=== PATIENT | female | born 1945 | race Two or more races ===

== ENCOUNTER 2017-05-26 14:52 | Emergency (ER) | payer OTHER ==
[~2017-05-26] VITALS: Ht 162.6 cm; Wt 115.7 kg
[~2017-05-26 14:52] MED LIST: CARDURA8 MG PO; FOLIC ACID1 MG PO; HUMULIN 70/30 PE3 ML SC; HUMULIN 70/30 PE3 ML SQ; LASIX40 MG PO; NEURONTIN600 MG PO; PREDNISONE20 MG PO; SINGULAIR10 MG PO; SYNTHROID50 MCG PO; TRENTAL; TYLENOL/CODEINE; VITAMIN D35000 UNI1 PO; WOMEN'S DAILY1 EACH PO; Z-TUSS AC LIQU473 ML; ZESTRIL40 M1 PO; ZYLOPRIM300 MG PO
[2017-05-26] MEDS ORDERED: LIPITOR20 MG (15:22)
[2017-05-26] MEDS ORDERED: COZAAR100 MG (15:22)
== END 2017-05-27 01:03 | disposition home or self-care (01) ==
LOC: ER 14:52
DX: J45.909 Unspecified asthma, uncomplicated (principal); J11.1 Influenza due to unidentified influenza virus with other respiratory manifestations; K52.9 Noninfective gastroenteritis and colitis, unspecified

== ENCOUNTER 2018-07-02 17:33 | Emergency (ER) | payer OTHER ==
[~2018-07-02] VITALS: Ht 157.5 cm; Wt 127.0 kg
[~2018-07-02 17:33] MED LIST changes: +COZAAR100 MG; +LIPITOR20 MG
== END 2018-07-02 21:11 | disposition home or self-care (01) ==
LOC: ER 17:33
DX: E11.649 Type 2 diabetes mellitus with hypoglycemia without coma (principal); R07.89 Other chest pain; M54.2 Cervicalgia; M25.511 Pain in right shoulder; I16.0 Hypertensive urgency; I10 Essential (primary) hypertension

== ENCOUNTER 2022-09-09 16:05 | Emergency (ER) | payer OTHER ==
[~2022-09-09] VITALS: Ht 162.6 cm; Wt 136.1 kg
[2022-09-09] MEDS ORDERED: TUSNEL DIABETI118 ML PO (18:35)
[2022-09-09] MEDS ORDERED: ZITHROMAX500 MG PO (18:35)
[2022-09-09] MEDS ORDERED: XOPENEX0.63 MG/3 IH (18:35)
== END 2022-09-09 18:49 | disposition home or self-care (01) ==
LOC: ER 16:05
DX: J45.901 Unspecified asthma with (acute) exacerbation (principal); E11.9 Type 2 diabetes mellitus without complications; Z79.4 Long term (current) use of insulin; Z20.822 Contact with and (suspected) exposure to COVID-19; I10 Essential (primary) hypertension

== ENCOUNTER 2024-05-31 19:09 | Inpatient (IN) | payer OTHER ==
[~2024-05-31] VITALS: Ht 172.7 cm; Wt 181.4 kg
[~2024-05-31 19:09] MED LIST changes: +TUSNEL DIABETI118 ML PO; +XOPENEX0.63 MG/3 IH; +ZITHROMAX500 MG PO
[2024-05-31] MEDS ORDERED: GUAIFENESIN/DEXTROMETHORPHAN 10ML BLIST.PACK PO ONE ×2 (21:15→21:19)
[2024-05-31] MEDS ORDERED: MAGNESIUM SULFATE IN WATER 50 ML IV ONE (21:15)
[2024-05-31] MEDS ORDERED: METHYLPREDNISOLONE SOD SUCC 125 MG VIAL IV ONE (21:15)
[2024-05-31] MEDS ORDERED: IPRATROPIUM BROMIDE 0.5 MG/2.5 ML AMPUL.NEB IH SCH (21:15)
[2024-05-31] MEDS ORDERED: 0.9 % SODIUM CHLORIDE 1,000 ML IV SCH (21:15)
[2024-05-31] MEDS ORDERED: LEVALBUTEROL HCL 1.25 MG/3 ML SOLUTION IH SCH (21:15)
[2024-05-31] MEDS ORDERED: MAGNESIUM SULFATE 50% 1,000 MG/2 ML VIAL ONE (21:19)
[2024-05-31] MEDS ORDERED: METHYLPREDNISOLONE SOD SUCC 125 MG VIAL ONE (21:19)
[2024-05-31] MEDS ORDERED: LEVALBUTEROL HCL 1.25 MG/3 ML SOLUTION IH ONE (21:23)
[2024-05-31] MEDS ORDERED: IPRATROPIUM BROMIDE 0.5 MG/2.5 ML AMPUL.NEB IH ONE (21:23)
[2024-05-31 21:46] LABS: HEMATOCRIT 28.5 % (36.0-45.00); HEMOGLOBIN 9.2 g/dL (12.0-15.00); MEAN CELL VOLUME 100.6 fL (80.00-100.00); MEAN CORPUSCULAR HEMOGLOBIN 32.6 pg (27.00-32.0); MEAN CORPUSCULAR HGB CONC 32.4 g/dl (32.0-36.0); RED BLOOD COUNT 2.83 M/uL (4.00-6.00); RED CELL DISTRIBUTION WIDTH 15.8 % (11.5-14.5)
[2024-05-31 21:48] LABS: PLATELET COUNT 92 K/uL (150-450)
[2024-05-31 21:49] LABS: ABG PH 7.406 (7.35-7.45); ABG pCO2 49.3 mmHg (35-45); BASE EXCESS 4.5 mmol/l; BICARBONATE 30.3 mmol/l (23-25); SaO2 96.2 %; Tco2 31.8 mmol/l; allen test SATISFACTORY; puncture site RADIAL LEFT
[2024-05-31 21:50] LABS: o2 21 %
[2024-05-31 22:15] LABS: ALBUMIN 2.9 gm/dL (3.4-5.0); BILIRUBIN TOTAL 0.35 mg/dL (0.3-1.2); CALCIUM 8.9 mg/dL (8.5-10.1); CREATININE SERUM 2.42 mg/dL (0.55-1.02); GFR 19.29; GLOBULINA 4.6 G/DL (2.4-3.5); POTASSIUM 4.4 mEq/L (3.5-5.1); TOTAL PROTEIN 7.5 gm/dL (6.4-8.2)
[2024-06-01] MEDS ORDERED: FAMOTIDINE/PF 20 MG in 0.9 % SODIUM CHLORIDE 8 ML IV PUSH SCH (00:35)
[2024-06-01] MEDS ORDERED: PIPERACILLIN/TAZOBACTAM SODIUM 2.25 GM in DEXTROSE 5 % IN WATER 50 ML IV SCH (00:36)
[2024-06-01] MEDS ORDERED: BUDESONIDE 0.5 MG/2 ML AMPUL.NEB IH SCH (00:41)
[2024-06-01] MEDS ORDERED: ACETAMINOPHEN 500 MG GEL..CAP PO PRN (00:45)
[2024-06-01] MEDS ORDERED: DEXTROSE 50 % IN WATER 0.5 G/ML DISP.SYRIN IV PRN (00:45)
[2024-06-01] MEDS ORDERED: INSULIN LISPRO 1,000 UNIT/10 ML UNITS SUBCUTANEO PRN (00:45)
[2024-06-01] MEDS ORDERED: LEVALBUTEROL HCL 1.25 MG/3 ML SOLUTION IH SCH ×2 (01:00→20:00)
[2024-06-01] MEDS ORDERED: GUAIFEN/DEXTROMETHORPHAN/PE 10 ML BLIST.PACK PO SCH (01:00)
[2024-06-01] MEDS ORDERED: IPRATROPIUM BROMIDE 0.5 MG/2.5 ML AMPUL.NEB IH SCH ×2 (01:00→20:00)
[2024-06-01] MEDS ORDERED: FAMOTIDINE/PF 20 MG/2 ML VIAL ONE ×2 (01:11→08:54)
[2024-06-01] MEDS ORDERED: GUAIFEN/DEXTROMETHORPHAN/PE 10 ML BLIST.PACK PO ONE ×4 (01:11→17:23)
[2024-06-01] MEDS ORDERED: LEVALBUTEROL HCL 1.25 MG/3 ML SOLUTION IH ONE ×5 (02:12→18:08)
[2024-06-01] MEDS ORDERED: IPRATROPIUM BROMIDE 0.5 MG/2.5 ML AMPUL.NEB IH ONE ×5 (02:12→18:08)
[2024-06-01] MEDS ORDERED: BUDESONIDE 0.5 MG/2 ML AMPUL.NEB IH ONE ×2 (02:12→08:57)
[2024-06-01 02:19] LABS: URINE APPEARANCE Clear; URINE BILIRRUBIN Negative (NEGATIVE); URINE BLOOD Negative; URINE COLOR Yellow; URINE GLUCOSE Negative (NEGATIVE); URINE KETONE Negative (NEGATIVE); URINE LEUKOCYTE Small; URINE NITRATE Negative; URINE PROTEIN Trace (NEGATIVE); URINE UROBILINOGEN 0.2 E.U./dl
[2024-06-01 02:22] LABS: URINE BACTERIA 3347.4 uL (0.0-1933); URINE EPITHELIAL CELLS 10.1 uL (0.0-38.8); URINE WBC 94.8 uL (0.0-23.2)
[2024-06-01 02:23] LABS: URINE CAST 0.29 uL (0.0-1.40); URINE RBC 1.1 uL (0.0-20.8)
[2024-06-01 02:53] LABS: INR 1.02; PARTIAL THROMBOPLASTIN TIME 22.3 SECONDS (22.0-34.0); PROTHROMBIN TIME 11.1 SECONDS (9.0-11.5)
[2024-06-01] MEDS ORDERED: ENOXAPARIN SODIUM 40 MG/0.4 ML SYRINGE SUBCUTANEO SCH (16:45)
[2024-06-01] MEDS ORDERED: FUROsemide 20 MG/2 ML VIAL IV SCH (16:47)
[2024-06-01] MEDS ORDERED: PENTOXIFYLLINE 400 MG TABLET.SA PO SCH (17:00)
[2024-06-01] MEDS ORDERED: MONTELUKAST SODIUM 10 MG TABLET PO SCH (17:00)
[2024-06-01] MEDS ORDERED: DOXAZOSIN MESYLATE 8 MG TABLET PO SCH (17:00)
[2024-06-01] MEDS ORDERED: FUROsemide 20 MG/2 ML VIAL ONE (17:23)
[2024-06-01] MEDS ORDERED: ENOXAPARIN SODIUM 40 MG/0.4 ML SYRINGE SUBCUTANEO ONE (17:23)
[2024-06-01 18:00] VITALS: BP 143/57; O2SAT 100
[2024-06-01 21:31] VITALS: O2SAT 99
[2024-06-01 22:18] VITALS: BP 143/55; O2SAT 100
[2024-06-02] VITALS (8 sets, daily range): BP systolic 144–167; BP diastolic 60–61; O2SAT 96–100
[2024-06-02 08:41] LABS: CALCIUM 8.7 mg/dL (8.5-10.1); CREATININE SERUM 2.88 mg/dL (0.55-1.02); GFR 15.78; POTASSIUM 4.76 mEq/L (3.5-5.1); TSH 1.07 uIU/mL (0.358-3.74)
[2024-06-02] MEDS ORDERED: CANDESARTAN CILEXETIL 32 MG TABLET PO SCH (09:00)
[2024-06-02] MEDS ORDERED: ATORVASTATIN CALCIUM 10 MG TABLET PO SCH (09:00)
[2024-06-02] MEDS ORDERED: BENZONATATE 100 MG CAPSULE PO SCH (20:58)
[2024-06-02] MEDS ORDERED: METHYLPREDNISOLONE SOD SUCC 40 MG VIAL IV SCH (20:59)
[2024-06-03] VITALS (9 sets, daily range): BP systolic 16–180; BP diastolic 63–77; O2SAT 94–99
[2024-06-03] MEDS ORDERED: IPRATROPIUM BROMIDE 0.5 MG/2.5 ML AMPUL.NEB IH SCH
[2024-06-03] MEDS ORDERED: LEVALBUTEROL HCL 1.25 MG/3 ML SOLUTION IH SCH
[2024-06-03] MEDS ORDERED: EMOLLIENTS 6 OZ BOTTLE TOP SCH (17:00)
[2024-06-03] MEDS ORDERED: METHYLPREDNISOLONE SOD SUCC 40 MG VIAL IV SCH (21:18)
[2024-06-04] VITALS (8 sets, daily range): BP systolic 157–170; BP diastolic 69–70; O2SAT 97–99
[2024-06-04 04:15] LABS: FECAL LEUKOCYTES POSITIVE (NEGATIVE)
[2024-06-04 06:26] LABS: HEMATOCRIT 27.5 % (36.0-45.00); MEAN CELL VOLUME 100.7 fL (80.00-100.00); MEAN CORPUSCULAR HGB CONC 32.7 g/dl (32.0-36.0); RED BLOOD COUNT 2.73 M/uL (4.00-6.00); RED CELL DISTRIBUTION WIDTH 16.1 % (11.5-14.5)
[2024-06-04 06:34] LABS: PLATELET COUNT 88 K/uL (150-450)
[2024-06-04 06:43] LABS: CALCIUM 9.2 mg/dL (8.5-10.1); CREATININE SERUM 2.32 mg/dL (0.55-1.02); GFR 20.25; MAGNESIUM 1.8 mg/dL (1.8-2.4); PHOSPHOROUS 4.1 mg/dL (2.5-4.9); POTASSIUM 4.87 mEq/L (3.5-5.1)
[2024-06-04 15:31] LABS: ALBUMIN 3.3 gm/dL (3.4-5.0); CALCIUM 9.2 mg/dL (8.5-10.1); CREATININE SERUM 2.5 mg/dL (0.55-1.02); GFR 18.58; PHOSPHOROUS 4.2 mg/dL (2.5-4.9); POTASSIUM 4.71 mEq/L (3.5-5.1); URIC ACID 7.9 mg/dL (2.5-7.5)
[2024-06-04] MEDS ORDERED: CEFEPIME HCL 2,000 MG in 0.9 % SODIUM CHLORIDE 100 ML IV SCH (21:00)
[2024-06-05] VITALS (8 sets, daily range): BP systolic 155–181; BP diastolic 67–72; O2SAT 95–100
[2024-06-05 06:51] LABS: MEAN CELL VOLUME 99.2 fL (80.00-100.00); MEAN CORPUSCULAR HGB CONC 33.9 g/dl (32.0-36.0); RED BLOOD COUNT 2.62 M/uL (4.00-6.00)
[2024-06-05 06:52] LABS: MEAN CORPUSCULAR HEMOGLOBIN 33.5 pg (27.00-32.0); PLATELET COUNT 83 K/uL (150-450)
[2024-06-05 06:53] LABS: HEMOGLOBIN 8.8 g/dL (12.0-15.00)
[2024-06-05 07:30] LABS: BILIRUBIN TOTAL 0.41 mg/dL (0.3-1.2); CALCIUM 9.2 mg/dL (8.5-10.1); CREATININE SERUM 2.4 mg/dL (0.55-1.02); GFR 19.47; GLOBULINA 4.2 G/DL (2.4-3.5); POTASSIUM 5.14 mEq/L (3.5-5.1); TOTAL PROTEIN 7.2 gm/dL (6.4-8.2)
[2024-06-05] MEDS ORDERED: FAMOtidine 20 MG TABLET PO SCH (09:00)
[2024-06-05] MEDS ORDERED: METHYLPREDNISOLONE SOD SUCC 40 MG VIAL IV SCH (21:00)
[2024-06-06 03:08] VITALS: BP 146/75; O2SAT 97
[2024-06-06 06:25] VITALS: O2SAT 99
[2024-06-06 06:38] LABS: HEMATOCRIT 28.6 % (36.0-45.00); HEMOGLOBIN 9.2 g/dL (12.0-15.00); MEAN CELL VOLUME 100.7 fL (80.00-100.00); MEAN CORPUSCULAR HEMOGLOBIN 32.3 pg (27.00-32.0); MEAN CORPUSCULAR HGB CONC 32.1 g/dl (32.0-36.0); RED BLOOD COUNT 2.84 M/uL (4.00-6.00); RED CELL DISTRIBUTION WIDTH 15.9 % (11.5-14.5)
[2024-06-06 06:45] LABS: D DIMER 1.25 MG/L
[2024-06-06 06:47] LABS: ERYTHROCYTE SEDIMENTATION RATE 86 mm/hr
[2024-06-06 07:04] LABS: PLATELET COUNT 75 K/uL (150-450)
[2024-06-06 08:22] LABS: PLATELET ESTIMATE NORMAL (NORMAL)
[2024-06-06] MEDS ORDERED: EPOETIN ALFA-EPBX 10,000 UNIT/ML VIAL (Retacrit) SUBCUTANEO SCH (09:00)
[2024-06-06 09:54] VITALS: BP 187/70; O2SAT 97
[2024-06-06 10:00] VITALS: O2SAT 97
[2024-06-06 12:09] LABS: PROCALCITONIN 0.093 ng/ml (0.020-0.080)
[2024-06-06 12:11] LABS: FOLIC ACID > 20.00 ng/ml (4.78-20)
[2024-06-06 13:02] VITALS: O2SAT 98
[2024-06-07 16:08] LABS: kappa lambda r 0.08 (0.26-1.65); kappa light 16.9 mg/L (3.3-19.4); lambda light 199.5 mg/L (5.7-26.3)
== END 2024-06-06 16:51 | disposition home or self-care (01) | DRG 191 ==
LOC: ER 19:11 → MEDI 06-01 18:08
PROVIDERS: General Practice; Internal Medicine; Internal Medicine Hematology & Oncology; Internal Medicine Nephrology; ADMIT Internal Medicine; ATTEND Internal Medicine
PROC: BB24ZZZ Computerized Tomography (CT Scan) of Bilateral Lungs (ICD-10-PCS; principal; 2024-05-31)
PROC: B54DZZZ Ultrasonography of Bilateral Lower Extremity Veins (ICD-10-PCS; 2024-06-01)
PROC: 3E0F7GC Introduction of Other Therapeutic Substance into Respiratory Tract, Via Natural or Artificial Opening (ICD-10-PCS; 2024-06-01)
PROC: 4A12X4Z Monitoring of Cardiac Electrical Activity, External Approach (ICD-10-PCS; 2024-06-01)
PROC: B44HZZZ Ultrasonography of Bilateral Lower Extremity Arteries (ICD-10-PCS; 2024-06-01)
PROC: 0JBN3ZZ Excision of Right Lower Leg Subcutaneous Tissue and Fascia, Percutaneous Approach (ICD-10-PCS; 2024-06-02)
PROC: B246ZZZ Ultrasonography of Right and Left Heart (ICD-10-PCS; 2024-06-03)
PROC: BT4JZZZ Ultrasonography of Kidneys and Bladder (ICD-10-PCS; 2024-06-04)
DX: J44.1 Chronic obstructive pulmonary disease with (acute) exacerbation (principal); L97.818 Non-pressure chronic ulcer of other part of right lower leg with other specified severity; N17.8 Other acute kidney failure; L98.418 Non-pressure chronic ulcer of buttock with other specified severity; I12.9 Hypertensive chronic kidney disease with stage 1 through stage 4 chronic kidney disease, or unspecified chronic kidney disease; N18.9 Chronic kidney disease, unspecified; E03.9 Hypothyroidism, unspecified; L08.89 Other specified local infections of the skin and subcutaneous tissue; E66.01 Morbid (severe) obesity due to excess calories

== ENCOUNTER 2024-06-07 23:24 | Emergency (ER) | payer OTHER ==
[~2024-06-07] VITALS: Ht 165.1 cm; Wt 122.5 kg
[2024-06-08] MEDS ORDERED: METHYLPREDNISOLONE SOD SUCC 125 MG VIAL IV STA (04:13)
[2024-06-08] MEDS ORDERED: ALBUTEROL SULFATE 3 ML/2.5 MG AMPUL.NEB IH SCH (04:15)
[2024-06-08] MEDS ORDERED: METHYLPREDNISOLONE SOD SUCC 125 MG VIAL ONE (04:19)
[2024-06-08] MEDS ORDERED: IPRATROPIUM BROMIDE 0.5 MG/2.5 ML AMPUL.NEB IH SCH (04:30)
[2024-06-08] MEDS ORDERED: IPRATROPIUM BROMIDE 0.5 MG/2.5 ML AMPUL.NEB IH ONE (04:40)
[2024-06-08] MEDS ORDERED: ALBUTEROL SULFATE 3 ML/2.5 MG AMPUL.NEB IH ONE (04:40)
[2024-06-08 04:56] LABS: HEMATOCRIT 28.6 % (36.0-45.00); MEAN CELL VOLUME 98.6 fL (80.00-100.00); MEAN CORPUSCULAR HGB CONC 33.5 g/dl (32.0-36.0)
[2024-06-08 05:00] LABS: PLATELET COUNT 79 K/uL (150-450)
[2024-06-08 05:01] LABS: HEMOGLOBIN 9.6 g/dL (12.0-15.00); MEAN CORPUSCULAR HEMOGLOBIN 33.1 pg (27.00-32.0)
[2024-06-08 05:42] LABS: CALCIUM 8.8 mg/dL (8.5-10.1); CREATININE SERUM 2.47 mg/dL (0.55-1.02); GFR 18.84; POTASSIUM 3.7 mEq/L (3.5-5.1)
== END 2024-06-08 08:05 | disposition home or self-care (01) ==
LOC: ER 23:24
DX: J45.901 Unspecified asthma with (acute) exacerbation (principal); I10 Essential (primary) hypertension; E11.9 Type 2 diabetes mellitus without complications; Z79.84 Long term (current) use of oral hypoglycemic drugs; R07.89 Other chest pain

== ENCOUNTER 2024-06-08 22:35 | Inpatient (IN) | payer OTHER ==
[~2024-06-08] VITALS: Ht 162.6 cm; Wt 126.6 kg
[2024-06-09] VITALS (10 sets, daily range): BP systolic 102–150; BP diastolic 48–68; O2SAT 94–100
[2024-06-09] MEDS ORDERED: IPRATROPIUM/ALBUTEROL SULFATE 3 ML AMPUL.NEB IH STA (00:45)
[2024-06-09] MEDS ORDERED: IPRATROPIUM/ALBUTEROL SULFATE 3 ML AMPUL.NEB IH ONE (01:11)
[2024-06-09 01:42] LABS: ABG PH 7.494 (7.35-7.45); ABG PO2 82.6 mmHg (80-100); ABG pCO2 36.1 mmHg (35-45); BICARBONATE 27.2 mmol/l (23-25); SaO2 97.2 %; Tco2 28.3 mmol/l; allen test SATISFACTORY; o2 21 %; puncture site RADIAL RIGHT
[2024-06-09 02:12] LABS: ALBUMIN 2.8 gm/dL (3.4-5.0); BILIRUBIN TOTAL 0.52 mg/dL (0.3-1.2); CALCIUM 8.7 mg/dL (8.5-10.1); CREATININE SERUM 2.59 mg/dL (0.55-1.02); GFR 17.83; GLOBULINA 4.1 G/DL (2.4-3.5); POTASSIUM 3.95 mEq/L (3.5-5.1); TOTAL PROTEIN 6.9 gm/dL (6.4-8.2)
[2024-06-09 02:42] LABS: HEMOGLOBIN 9.7 g/dL (12.0-15.00); MEAN CELL VOLUME 97.6 fL (80.00-100.00); MEAN CORPUSCULAR HEMOGLOBIN 32.5 pg (27.00-32.0); MEAN CORPUSCULAR HGB CONC 33.3 g/dl (32.0-36.0); PLATELET COUNT 75 K/uL (150-450); RED BLOOD COUNT 2.97 M/uL (4.00-6.00); RED CELL DISTRIBUTION WIDTH 16.2 % (11.5-14.5)
[2024-06-09 02:45] LABS: ERYTHROCYTE SEDIMENTATION RATE 4 mm/hr
[2024-06-09 02:50] LABS: D DIMER 1.89 MG/L; PARTIAL THROMBOPLASTIN TIME 20.3 SECONDS (22.0-34.0)
[2024-06-09 02:51] LABS: INR 1.18; PROTHROMBIN TIME 12.7 SECONDS (9.0-11.5)
[2024-06-09] MEDS ORDERED: CLOPIDOGREL BISULFATE 75 MG TABLET PO STA (03:42)
[2024-06-09] MEDS ORDERED: ASPIRIN 81 MG TAB.CHEW PO STA (03:43)
[2024-06-09] MEDS ORDERED: ATORVASTATIN CALCIUM 40 MG TABLET PO STA (03:44)
[2024-06-09] MEDS ORDERED: NITROGLYCERIN IN 5 % DEXTROSE 50 MG/250 ML KIT IV STA (03:45)
[2024-06-09] MEDS ORDERED: HEPARIN SODIUM,PORCINE 5,000 UNITS/ML VIAL SUBCUTANEO STA (03:46)
[2024-06-09] MEDS ORDERED: HEPARIN SODIUM,PORCINE 5,000 UNITS/ML VIAL ONE (04:01)
[2024-06-09] MEDS ORDERED: NITROGLYCERIN IN 5 % DEXTROSE 50 MG/250 ML BOTTLE IV ONE (04:01)
[2024-06-09] MEDS ORDERED: CLOPIDOGREL BISULFATE 75 MG TABLET PO ONE (04:01)
[2024-06-09] MEDS ORDERED: ONDANSETRON HCL 2 MG/ML VIAL IV PRN (07:45)
[2024-06-09 09:50] LABS: URINE APPEARANCE Cloudy; URINE BILIRRUBIN Negative (NEGATIVE); URINE BLOOD Small; URINE COLOR Dark Yellow; URINE GLUCOSE Negative (NEGATIVE); URINE KETONE Trace (NEGATIVE); URINE LEUKOCYTE Small; URINE NITRATE Negative; URINE PROTEIN 30 (NEGATIVE); URINE UROBILINOGEN 0.2 E.U./dl
[2024-06-09] MEDS ORDERED: FAMOTIDINE/PF 20 MG/2 ML VIAL ONE (10:36)
[2024-06-09] MEDS ORDERED: FAMOTIDINE/PF 20 MG/2 ML VIAL IV ONE (10:45)
[2024-06-09] MEDS ORDERED: MORPHINE SULFATE 2 MG/ML SYRINGE IV PRN (10:45)
[2024-06-09] MEDS ORDERED: 0.9 % SODIUM CHLORIDE 1,000 ML IV ONE (10:45)
[2024-06-09] MEDS ORDERED: DEXTROSE 50 % IN WATER 0.5 G/ML DISP.SYRIN IV PRN ×2 (13:45→18:00)
[2024-06-09] MEDS ORDERED: INSULIN LISPRO 1,000 UNIT/10 ML UNITS SUBCUTANEO PRN ×2 (13:45→18:00)
[2024-06-09] MEDS ORDERED: BUMETANIDE 0.25 MG/ML VIAL 4ML IV PUSH SCH (17:48)
[2024-06-09] MEDS ORDERED: EPOETIN ALFA-EPBX 10,000 UNIT/ML VIAL (Retacrit) SUBCUTANEO SCH (17:49)
[2024-06-09] MEDS ORDERED: IPRATROPIUM BROMIDE 0.5 MG/2.5 ML AMPUL.NEB IH SCH (18:00)
[2024-06-09] MEDS ORDERED: SODIUM CHLORIDE 0.45 % 1,000 ML IV SCH (18:00)
[2024-06-09] MEDS ORDERED: ONDANSETRON HCL 4 MG in DEXTROSE 5 % IN WATER 50 ML IV PRN (18:00)
[2024-06-09] MEDS ORDERED: MORPHINE SULFATE 2 MG/ML CARTRIDGE IV PRN (18:00)
[2024-06-09] MEDS ORDERED: NITROGLYCERIN IN 5 % DEXTROSE 250 ML IV SCH (18:00)
[2024-06-09] MEDS ORDERED: ACETAMINOPHEN 500 MG GEL..CAP PO PRN (18:00)
[2024-06-09] MEDS ORDERED: LEVALBUTEROL HCL 1.25 MG/3 ML SOLUTION IH SCH (18:03)
[2024-06-09 19:50] LABS: CKMB 1.8 NG/ML (0.5-3.6)
[2024-06-09] MEDS ORDERED: ENOXAPARIN SODIUM 100 MG/ML SYRINGE SUBCUTANEO SCH (21:00)
[2024-06-10] VITALS (8 sets, daily range): BP systolic 125–141; BP diastolic 53–57; O2SAT 96–98
[2024-06-10] MEDS ORDERED: LEVOTHYROXINE SODIUM 50 MCG TABLET PO SCH (06:00)
[2024-06-10 07:48] LABS: URINE APPEARANCE Turbid; URINE BILIRRUBIN Moderate (NEGATIVE); URINE BLOOD Large; URINE COLOR Dark Yellow; URINE GLUCOSE Negative (NEGATIVE); URINE KETONE Trace (NEGATIVE); URINE LEUKOCYTE Moderate; URINE NITRATE Negative; URINE PROTEIN 30 (NEGATIVE)
[2024-06-10 07:49] LABS: URINE BACTERIA 4991.4 uL (0.0-1933); URINE EPITHELIAL CELLS 168.7 uL (0.0-38.8); URINE RBC 334.5 uL (0.0-20.8); URINE WBC 642.9 uL (0.0-23.2)
[2024-06-10 08:41] LABS: HEMATOCRIT 28.1 % (36.0-45.00); HEMOGLOBIN 9.4 g/dL (12.0-15.00); MEAN CORPUSCULAR HEMOGLOBIN 33.3 pg (27.00-32.0); MEAN CORPUSCULAR HGB CONC 33.3 g/dl (32.0-36.0); RED BLOOD COUNT 2.81 M/uL (4.00-6.00); RED CELL DISTRIBUTION WIDTH 16.4 % (11.5-14.5)
[2024-06-10 08:51] LABS: URINE CAST > 21.83 uL (0.0-1.40)
[2024-06-10 08:53] LABS: URINE CRYSTALS FEW /HPF; URINE YEAST MANY /hpf
[2024-06-10] MEDS ORDERED: ASPIRIN 81 MG TAB.CHEW PO SCH (09:00)
[2024-06-10] MEDS ORDERED: ATORVASTATIN CALCIUM 40 MG TABLET PO SCH (09:00)
[2024-06-10] MEDS ORDERED: PANTOPRAZOLE SODIUM 40 MG in 0.9 % SODIUM CHLORIDE 8 ML IV PUSH SCH (09:00)
[2024-06-10] MEDS ORDERED: PREDNISONE 10 MG TABLET PO SCH (09:00)
[2024-06-10] MEDS ORDERED: PENTOXIFYLLINE 400 MG TABLET.SA PO SCH (09:00)
[2024-06-10] MEDS ORDERED: DOXAZOSIN MESYLATE 8 MG TABLET PO SCH (09:00)
[2024-06-10] MEDS ORDERED: CEFTRIAXONE SODIUM 1,000 MG VIAL IV SCH (09:00)
[2024-06-10] MEDS ORDERED: CANDESARTAN CILEXETIL 32 MG TABLET PO SCH (09:00)
[2024-06-10 09:08] LABS: PLATELET COUNT 69 K/uL (150-450)
[2024-06-10 09:09] LABS: ALBUMIN 2.6 gm/dL (3.4-5.0); BILIRUBIN TOTAL 0.46 mg/dL (0.3-1.2); BILIRUBIN,CONJUGATED 0.19 mg/dL (0.0-0.2); BILIRUBIN,UNCONJUGATED 0.27 mg/dL (0.0-0.6); CALCIUM 8.5 mg/dL (8.5-10.1); CHOL HDL RATIO 2.3 (0-5.0); GLOBULINA 3.7 G/DL (2.4-3.5); POTASSIUM 4.15 mEq/L (3.5-5.1); TOTAL PROTEIN 6.3 gm/dL (6.4-8.2); TSH 1.08 uIU/mL (0.358-3.74)
[2024-06-10 09:10] LABS: ERYTHROCYTE SEDIMENTATION RATE 34 mm/hr
[2024-06-10 09:17] LABS: INR 1.15; PROTHROMBIN TIME 12.4 SECONDS (9.0-11.5)
[2024-06-10 09:52] LABS: C-REACTIVE PROTEIN 2.16 MG/DL (0.00-0.29); CREATININE SERUM 5.03 mg/dL (0.55-1.02); GFR 8.29
[2024-06-10] MEDS ORDERED: BUMETANIDE 2.5 MG/10 ML VIAL IV SCH (13:00)
[2024-06-10] MEDS ORDERED: MONTELUKAST SODIUM 10 MG TABLET PO SCH (17:00)
[2024-06-10] MEDS ORDERED: hydrALAZINE HCL 50 MG TABLET PO SCH (22:09)
[2024-06-11] VITALS (10 sets, daily range): BP systolic 133–144; BP diastolic 45–58; O2SAT 96–98
[2024-06-11 06:53] LABS: URINE APPEARANCE Clear; URINE BILIRRUBIN Negative (NEGATIVE); URINE BLOOD Small; URINE COLOR Yellow; URINE GLUCOSE Negative (NEGATIVE); URINE KETONE Trace (NEGATIVE); URINE LEUKOCYTE Small; URINE NITRATE Negative; URINE PROTEIN 30 (NEGATIVE); URINE UROBILINOGEN 0.2 E.U./dl
[2024-06-11 06:55] LABS: URINE BACTERIA 102.8 uL (0.0-1933); URINE CAST 20.47 uL (0.0-1.40); URINE EPITHELIAL CELLS 20.7 uL (0.0-38.8); URINE RBC 83.9 uL (0.0-20.8); URINE WBC 156.1 uL (0.0-23.2)
[2024-06-11 07:05] LABS: URINE YEAST FEW /hpf
[2024-06-11 07:52] LABS: ALBUMIN 2.5 gm/dL (3.4-5.0); BILIRUBIN TOTAL 0.42 mg/dL (0.3-1.2); CALCIUM 8.4 mg/dL (8.5-10.1); GFR 7.56; GLOBULINA 3.5 G/DL (2.4-3.5); POTASSIUM 3.81 mEq/L (3.5-5.1)
[2024-06-11] MEDS ORDERED: INSULIN NPH HUM/REG INSULIN HM 1,000 UNIT/10 ML UNITS SUBCUTANEO SCH (08:00)
[2024-06-11 08:13] LABS: CREATININE SERUM 5.45 mg/dL (0.55-1.02)
[2024-06-11] MEDS ORDERED: HEPARIN SODIUM,PORCINE 5,000 UNITS/ML VIAL ONE ×2 (12:35→18:39)
[2024-06-11] MEDS ORDERED: LIDOCAINE HCL 1% 10ML VIAL ONE (12:40)
[2024-06-11] MEDS ORDERED: HEPARIN SODIUM,PORCINE 5,000 UNITS/ML VIAL IJ NR (13:15)
[2024-06-11] MEDS ORDERED: LIDOCAINE HCL 1% 10ML VIAL IJ ONE (13:15)
[2024-06-11 13:57] LABS: ABG PH 7.451 (7.35-7.45); ABG PO2 84.9 mmHg (80-100); ABG pCO2 37.3 mmHg (35-45); BASE EXCESS 1.7 mmol/l; BICARBONATE 25.4 mmol/l (23-25); SaO2 96.9 %; Tco2 26.6 mmol/l
[2024-06-11 13:59] LABS: allen test SATISFACTORY; o2 28 %; puncture site RADIAL LEFT
[2024-06-11] MEDS ORDERED: METHYLPREDNISOLONE SOD SUCC 40 MG VIAL IM SCH (14:07)
[2024-06-11] MEDS ORDERED: IPRATROPIUM BROMIDE 0.5 MG/2.5 ML AMPUL.NEB IH SCH (16:00)
[2024-06-11] MEDS ORDERED: FLUCONAZOLE IN NACL,ISO-OSM 400 MG/200 ML PIGGYBAG IV NR (17:00)
[2024-06-11] MEDS ORDERED: MEROPENEM 500 MG/VIAL VIAL IV SCH (20:57)
[2024-06-11] MEDS ORDERED: METHYLPREDNISOLONE SOD SUCC 40 MG VIAL IV SCH (21:00)
[2024-06-12] VITALS (8 sets, daily range): BP systolic 140–164; BP diastolic 50–67; O2SAT 96–99
[2024-06-12 06:51] LABS: HEMATOCRIT 28.6 % (36.0-45.00); MEAN CELL VOLUME 100.9 fL (80.00-100.00); MEAN CORPUSCULAR HEMOGLOBIN 32.5 pg (27.00-32.0); MEAN CORPUSCULAR HGB CONC 32.2 g/dl (32.0-36.0); RED BLOOD COUNT 2.83 M/uL (4.00-6.00); RED CELL DISTRIBUTION WIDTH 15.9 % (11.5-14.5)
[2024-06-12 06:53] LABS: HEMOGLOBIN 9.2 g/dL (12.0-15.00); PLATELET COUNT 53 K/uL (150-450)
[2024-06-12 07:41] LABS: ALBUMIN 2.5 gm/dL (3.4-5.0); BILIRUBIN TOTAL 0.48 mg/dL (0.3-1.2); CALCIUM 8.1 mg/dL (8.5-10.1); GFR 9.43; GLOBULINA 3.8 G/DL (2.4-3.5); MAGNESIUM 1.8 mg/dL (1.8-2.4); POTASSIUM 4.38 mEq/L (3.5-5.1); TOTAL PROTEIN 6.3 gm/dL (6.4-8.2)
[2024-06-12 07:45] LABS: CREATININE SERUM 4.5 mg/dL (0.55-1.02)
[2024-06-12] MEDS ORDERED: FLUCONAZOLE IN NACL,ISO-OSM 100 ML IV SCH (09:00)
[2024-06-12] MEDS ORDERED: CEFTRIAXONE SODIUM 2,000 MG VIAL IV SCH (09:00)
[2024-06-12] MEDS ORDERED: MEROPENEM 500 MG/VIAL VIAL IV SCH ×2 (09:00)
[2024-06-13] VITALS (10 sets, daily range): BP systolic 90–190; BP diastolic 51–76; O2SAT 90–99
[2024-06-13] MEDS ORDERED: hydrALAZINE HCL 50 MG TABLET PO SCH ×2 (01:00→09:00)
[2024-06-13] MEDS ORDERED: PHENAZOPYRIDINE HCL 100 MG TABLET PO STA (09:50)
[2024-06-13] MEDS ORDERED: LACTOBACILLUS ACIDOPHILUS 1 CAP CAP PO STA (09:51)
[2024-06-13] MEDS ORDERED: AMLODIPINE BESYLATE 5 MG TABLET PO NR (10:15)
[2024-06-13] MEDS ORDERED: MORPHINE SULFATE 2 MG/ML SYRINGE IV PRN (11:45)
[2024-06-13] MEDS ORDERED: HYDROCORTISONE SODIUM SUCC/PF 50 MG/ML ML IV SCH (12:00)
[2024-06-13 12:10] LABS: ALBUMIN 2.5 gm/dL (3.4-5.0); BILIRUBIN TOTAL 0.3 mg/dL (0.3-1.2); CALCIUM 8.2 mg/dL (8.5-10.1); CREATININE SERUM 3.85 mg/dL (0.55-1.02); GFR 11.29; GLOBULINA 3.8 G/DL (2.4-3.5); POTASSIUM 4.38 mEq/L (3.5-5.1); TOTAL PROTEIN 6.3 gm/dL (6.4-8.2)
[2024-06-13] MEDS ORDERED: LACTOBACILLUS ACIDOPHILUS 1 CAP CAP PO SCH (13:00)
[2024-06-13] MEDS ORDERED: PHENAZOPYRIDINE HCL 100 MG TABLET PO SCH (13:00)
[2024-06-13 13:12] LABS: FOLIC ACID > 20.00 ng/ml (4.78-20)
[2024-06-13] MEDS ORDERED: HYDROCORTISONE SODIUM SUCC/PF 100 MG VIAL IV STA (13:59)
[2024-06-13 14:04] LABS: a:g ratio 0.7 (0.7-1.7); alpha 1 g 0.2 g/dL (0.0-0.4); beta g 0.8 g/dL (0.7-1.3); gamma g 1.5 g/dL (0.4-1.8); globulin t 3.5 g/dL (2.2-3.9); prot total 6.1 g/dL (6.0-8.5)
[2024-06-13] MEDS ORDERED: METHYLPREDNISOLONE SOD SUCC 40 MG VIAL IV SCH (17:00)
[2024-06-13] MEDS ORDERED: AMLODIPINE BESYLATE 5 MG TABLET PO SCH (17:00)
[2024-06-13] MEDS ORDERED: MEROPENEM 500 MG/VIAL VIAL IV SCH (21:00)
[2024-06-14] VITALS (10 sets, daily range): BP systolic 127–156; BP diastolic 50–71; O2SAT 90–99
[2024-06-14] MEDS ORDERED: LEVOTHYROXINE SODIUM 75 MCG TABLET PO SCH (06:00)
[2024-06-14 07:19] LABS: ALBUMIN 2.6 gm/dL (3.4-5.0); BILIRUBIN TOTAL 0.37 mg/dL (0.3-1.2); CALCIUM 8.7 mg/dL (8.5-10.1); CREATININE SERUM 3.95 mg/dL (0.55-1.02); GFR 10.96; GLOBULINA 3.9 G/DL (2.4-3.5); POTASSIUM 4.77 mEq/L (3.5-5.1); TOTAL PROTEIN 6.5 gm/dL (6.4-8.2)
[2024-06-14] MEDS ORDERED: INSULIN NPH HUM/REG INSULIN HM 1,000 UNIT/10 ML UNITS SUBCUTANEO SCH ×2 (08:00→17:00)
[2024-06-14] MEDS ORDERED: DOXAZOSIN MESYLATE 4 MG TABLET PO NR (10:00)
[2024-06-14 14:04] LABS: alb 27.8 % (.); alp 2 14.5 % (.); alph 8.4 % (.); gamma 20.3 % (.); m sp 0 % (Not Observed); prote 59.1 mg/dL (Not Estab.)
[2024-06-14 14:39] LABS: m spike 0
[2024-06-14 14:51] LABS: ALBUMIN 2.6 gm/dL (3.4-5.0); BILIRUBIN TOTAL 0.34 mg/dL (0.3-1.2); CALCIUM 8.3 mg/dL (8.5-10.1); GFR 10.44; GLOBULINA 3.9 G/DL (2.4-3.5); POTASSIUM 4.43 mEq/L (3.5-5.1); TOTAL PROTEIN 6.5 gm/dL (6.4-8.2)
[2024-06-14 15:09] LABS: CREATININE SERUM 4.12 mg/dL (0.55-1.02)
[2024-06-14] MEDS ORDERED: NYSTATIN 30 GM,ZINC OXIDE 30 GM,SILVER SULFADIAZINE 50 GM TOP SCH (17:00)
[2024-06-14] MEDS ORDERED: DOXAZOSIN MESYLATE 4 MG TABLET PO SCH (17:00)
[2024-06-14] MEDS ORDERED: BENZONATATE 200 MG CAPSULE PO PRN (17:45)
[2024-06-15] VITALS (8 sets, daily range): BP systolic 118–135; BP diastolic 45–60; O2SAT 94–98
[2024-06-15 00:46] LABS: ob POSITIVE (NEGATIVE)
[2024-06-15] MEDS ORDERED: BUMETANIDE 2.5 MG/10 ML VIAL IV SCH (09:00)
[2024-06-15 11:21] LABS: ALBUMIN 2.6 gm/dL (3.4-5.0); BILIRUBIN TOTAL 0.47 mg/dL (0.3-1.2); CALCIUM 8.4 mg/dL (8.5-10.1); GFR 9.91; GLOBULINA 3.9 G/DL (2.4-3.5); POTASSIUM 4.47 mEq/L (3.5-5.1); TOTAL PROTEIN 6.5 gm/dL (6.4-8.2)
[2024-06-15 11:41] LABS: CREATININE SERUM 4.31 mg/dL (0.55-1.02)
[2024-06-15] MEDS ORDERED: HEPARIN SODIUM,PORCINE 5,000 UNITS/ML VIAL IV NR (16:45)
[2024-06-15] MEDS ORDERED: INSULIN NPH HUM/REG INSULIN HM 1,000 UNIT/10 ML UNITS SUBCUTANEO SCH (17:00)
[2024-06-15] MEDS ORDERED: LORazepam 2 MG/ML VIAL IV PRN ×2 (21:30)
[2024-06-16] VITALS (9 sets, daily range): BP systolic 152–162; BP diastolic 51–72; O2SAT 93–97
[2024-06-16] MEDS ORDERED: PIPERACILLIN/TAZOBACTAM SODIUM 2.25 GM in DEXTROSE 5 % IN WATER 50 ML IV SCH
[2024-06-16 07:23] LABS: HEMATOCRIT 27.5 % (36.0-45.00); HEMOGLOBIN 9.2 g/dL (12.0-15.00); MEAN CELL VOLUME 98.7 fL (80.00-100.00); MEAN CORPUSCULAR HEMOGLOBIN 32.8 pg (27.00-32.0); MEAN CORPUSCULAR HGB CONC 33.2 g/dl (32.0-36.0); RED BLOOD COUNT 2.79 M/uL (4.00-6.00); RED CELL DISTRIBUTION WIDTH 16.5 % (11.5-14.5)
[2024-06-16 07:30] LABS: PLATELET COUNT 50 K/uL (150-450)
[2024-06-16 07:55] LABS: ALBUMIN 2.6 gm/dL (3.4-5.0); BILIRUBIN TOTAL 0.7 mg/dL (0.3-1.2); CALCIUM 8.5 mg/dL (8.5-10.1); CREATININE SERUM 3.1 mg/dL (0.55-1.02); GFR 14.49; GLOBULINA 3.5 G/DL (2.4-3.5); POTASSIUM 4.63 mEq/L (3.5-5.1); TOTAL PROTEIN 6.1 gm/dL (6.4-8.2)
[2024-06-16] MEDS ORDERED: INSULIN NPH HUM/REG INSULIN HM 1,000 UNIT/10 ML UNITS SUBCUTANEO SCH ×3 (08:00→17:00)
[2024-06-16] MEDS ORDERED: LORazepam 2 MG/ML VIAL IV PRN (11:00)
[2024-06-16 20:33] LABS: URINE APPEARANCE Clear; URINE BILIRRUBIN Small (NEGATIVE); URINE BLOOD Negative; URINE COLOR Orange; URINE GLUCOSE Negative (NEGATIVE); URINE KETONE Negative (NEGATIVE); URINE LEUKOCYTE Moderate; URINE NITRATE Positive; URINE PROTEIN 30 (NEGATIVE); URINE UROBILINOGEN 0.2 E.U./dl
[2024-06-16 20:37] LABS: URINE CAST 5.15 uL (0.0-1.40); URINE EPITHELIAL CELLS 63.1 uL (0.0-38.8); URINE RBC 29.4 uL (0.0-20.8); URINE WBC 169.5 uL (0.0-23.2)
[2024-06-17] VITALS (9 sets, daily range): BP systolic 104–160; BP diastolic 46–60; O2SAT 94–97
[2024-06-17] MEDS ORDERED: ONDANSETRON HCL 2 MG/ML VIAL IV SCH (22:30)
[2024-06-17] MEDS ORDERED: PANTOPRAZOLE SODIUM 40 MG/VIAL VIAL IV SCH (22:30)
[2024-06-18] VITALS (9 sets, daily range): BP systolic 128–129; BP diastolic 50–59; O2SAT 95–98
[2024-06-18] MEDS ORDERED: PROMETHAZINE HCL 25 MG/ML AMPUL IM ONE (03:30)
[2024-06-18] MEDS ORDERED: METOCLOPRAMIDE HCL 5 MG/ML VIAL IV PRN (03:30)
[2024-06-18 07:58] LABS: HEMATOCRIT 30.1 % (36.0-45.00); HEMOGLOBIN 9.5 g/dL (12.0-15.00); MEAN CELL VOLUME 101.5 fL (80.00-100.00); MEAN CORPUSCULAR HEMOGLOBIN 32.2 pg (27.00-32.0); MEAN CORPUSCULAR HGB CONC 31.7 g/dl (32.0-36.0); RED BLOOD COUNT 2.97 M/uL (4.00-6.00); RED CELL DISTRIBUTION WIDTH 16.4 % (11.5-14.5)
[2024-06-18] MEDS ORDERED: INSULIN NPH HUM/REG INSULIN HM 1,000 UNIT/10 ML UNITS SUBCUTANEO SCH (08:00)
[2024-06-18 08:06] LABS: PLATELET COUNT 51 K/uL (150-450)
[2024-06-18 08:55] LABS: CALCIUM 8.2 mg/dL (8.5-10.1); GFR 8.25; POTASSIUM 4.67 mEq/L (3.5-5.1)
[2024-06-18 09:18] LABS: CREATININE SERUM 5.05 mg/dL (0.55-1.02)
[2024-06-18] MEDS ORDERED: INSULIN NPH HUMAN ISOPHANE 1,000 UNITS/10 ML UNITS SUBCUTANEO STA (09:43)
[2024-06-18] MEDS ORDERED: PANTOPRAZOLE SODIUM 80 MG in 0.9 % SODIUM CHLORIDE 100 ML IV SCH (11:00)
[2024-06-18] MEDS ORDERED: PROMETHAZINE HCL 25 MG/ML AMPUL IM SCH (12:00)
[2024-06-18] MEDS ORDERED: DIATRIZOATE MEGLUMINE, SODIUM 30 ML BOTTLE PO NR (13:00)
[2024-06-18] MEDS ORDERED: PIPERACILLIN/TAZOBACTAM SODIUM 2.25 GM VIAL IV ONE (15:39)
[2024-06-18] MEDS ORDERED: METOCLOPRAMIDE HCL 5 MG/ML VIAL IV SCH (17:00)
[2024-06-18] MEDS ORDERED: HEPARIN SODIUM,PORCINE 5,000 UNITS/ML VIAL ONE (19:40)
[2024-06-18] MEDS ORDERED: DIPHENHYDRAMINE HCL 25 MG CAPSULE PO SCH (21:00)
[2024-06-18] MEDS ORDERED: INSULIN NPH HUMAN ISOPHANE 1,000 UNITS/10 ML UNITS SUBCUTANEO SCH (21:00)
[2024-06-19] VITALS (9 sets, daily range): BP systolic 119–168; BP diastolic 59–61; O2SAT 94–98
[2024-06-19] MEDS ORDERED: INSULIN NPH HUMAN ISOPHANE 1,000 UNITS/10 ML UNITS SUBCUTANEO SCH (09:00)
[2024-06-19] MEDS ORDERED: DILTIAZEM HCL 25 MG/5 ML VIAL IV ONE ×2 (09:22→09:45)
[2024-06-19] MEDS ORDERED: DILTIAZEM HCL 125MG/25ML VIAL IV ONE (09:31)
[2024-06-19 09:35] LABS: INR 1.13; PARTIAL THROMBOPLASTIN TIME 21.9 SECONDS (22.0-34.0); PROTHROMBIN TIME 12.2 SECONDS (9.0-11.5)
[2024-06-19] MEDS ORDERED: DILTIAZEM HCL 125 MG in 0.9 % SODIUM CHLORIDE 100 ML IV SCH (09:45)
[2024-06-19 09:59] LABS: HEMATOCRIT 29.7 % (36.0-45.00); MEAN CELL VOLUME 101.3 fL (80.00-100.00); MEAN CORPUSCULAR HGB CONC 31.6 g/dl (32.0-36.0); RED BLOOD COUNT 2.93 M/uL (4.00-6.00); RED CELL DISTRIBUTION WIDTH 16.6 % (11.5-14.5)
[2024-06-19 10:02] LABS: HEMOGLOBIN 9.4 g/dL (12.0-15.00); PLATELET COUNT 44 K/uL (150-450)
[2024-06-19 10:11] LABS: ALBUMIN 2.5 gm/dL (3.4-5.0); CALCIUM 8.2 mg/dL (8.5-10.1); GFR 10.35; PHOSPHOROUS 5.2 mg/dL (2.5-4.9); POTASSIUM 4.06 mEq/L (3.5-5.1)
[2024-06-19 10:51] LABS: CREATININE SERUM 4.15 mg/dL (0.55-1.02)
[2024-06-19] MEDS ORDERED: PIPERACILLIN/TAZOBACTAM SODIUM 2.25 GM VIAL IV ONE (16:42)
[2024-06-20] VITALS (10 sets, daily range): BP systolic 96–138; BP diastolic 55–82; O2SAT 94–98
[2024-06-20] MEDS ORDERED: SODIUM CL 0.9% 100 ML IV.SOLN IV ONE (03:25)
[2024-06-20] MEDS ORDERED: DIATRIZOATE MEGLUMINE, SODIUM 30 ML BOTTLE PO NR (08:45)
[2024-06-20 09:41] LABS: ABG PH 7.389 (7.35-7.45); ABG PO2 94.7 mmHg (80-100); ABG pCO2 34.9 mmHg (35-45); SaO2 97.1 %
[2024-06-20 09:42] LABS: BASE EXCESS -3.6 mmol/l; BICARBONATE 20.6 mmol/l (23-25); Tco2 21.7 mmol/l
[2024-06-20 09:43] LABS: allen test SATISFACTORY; o2 36 %; puncture site RADIAL LEFT
[2024-06-20] MEDS ORDERED: DEXTROSE 5%-WATER 50ML IV.SOLN ONE (13:45)
[2024-06-20] MEDS ORDERED: LEVALBUTEROL HCL 1.25 MG/3 ML SOLUTION IH SCH (17:00)
[2024-06-20] MEDS ORDERED: HEPARIN SODIUM,PORCINE 5,000 UNITS/ML VIAL ONE (17:19)
[2024-06-20] MEDS ORDERED: PREDNISONE 10 MG TABLET PO STA (21:05)
[2024-06-21] VITALS (19 sets, daily range): BP systolic 93–157; BP diastolic 38–93; O2SAT 93–100
[2024-06-21] MEDS ORDERED: SILVER SULFADIAZINE 50 GM JAR TOP ONE (07:44)
[2024-06-21 07:50] LABS: HEMATOCRIT 24.7 % (36.0-45.00); MEAN CELL VOLUME 99.7 fL (80.00-100.00); MEAN CORPUSCULAR HGB CONC 33.4 g/dl (32.0-36.0); RED BLOOD COUNT 2.47 M/uL (4.00-6.00); RED CELL DISTRIBUTION WIDTH 17.1 % (11.5-14.5)
[2024-06-21 07:52] LABS: MEAN CORPUSCULAR HEMOGLOBIN 33.1 pg (27.00-32.0)
[2024-06-21 07:53] LABS: HEMOGLOBIN 8.2 g/dL (12.0-15.00); PLATELET COUNT 31 K/uL (150-450)
[2024-06-21] MEDS ORDERED: INSULIN NPH HUM/REG INSULIN HM 1,000 UNIT/10 ML UNITS SUBCUTANEO SCH (08:00)
[2024-06-21] MEDS ORDERED: PANTOPRAZOLE SODIUM 40 MG/VIAL VIAL ONE (08:41)
[2024-06-21] MEDS ORDERED: METOPROLOL TARTRATE 100 MG TABLET PO SCH (09:00)
[2024-06-21] MEDS ORDERED: PREDNISONE 10 MG TABLET PO SCH (09:00)
[2024-06-21 09:08] LABS: ALBUMIN 2.1 gm/dL (3.4-5.0); BILIRUBIN TOTAL 0.5 mg/dL (0.3-1.2); CALCIUM 8.2 mg/dL (8.5-10.1); GFR 8.59; GLOBULINA 2.9 G/DL (2.4-3.5); MAGNESIUM 1.9 mg/dL (1.8-2.4); POTASSIUM 3.61 mEq/L (3.5-5.1)
[2024-06-21 09:29] LABS: CREATININE SERUM 4.88 mg/dL (0.55-1.02)
[2024-06-21] MEDS ORDERED: METOPROLOL TARTRATE 5MG/5ML AMPUL IV STA (11:01)
[2024-06-22] VITALS (10 sets, daily range): BP systolic 88–118; BP diastolic 39–97; O2SAT 98–100
[2024-06-22 07:36] LABS: MEAN CELL VOLUME 100.2 fL (80.00-100.00); MEAN CORPUSCULAR HGB CONC 32.5 g/dl (32.0-36.0); RED BLOOD COUNT 2.32 M/uL (4.00-6.00); RED CELL DISTRIBUTION WIDTH 16.7 % (11.5-14.5)
[2024-06-22 07:46] LABS: ERYTHROCYTE SEDIMENTATION RATE 31 mm/hr
[2024-06-22 07:51] LABS: HEMATOCRIT 23.3 % (36.0-45.00); HEMOGLOBIN 7.6 g/dL (12.0-15.00); MEAN CORPUSCULAR HEMOGLOBIN 32.7 pg (27.00-32.0)
[2024-06-22 08:26] LABS: FERRITIN 165.2 NG/ML (8-252)
[2024-06-22 08:27] LABS: PLATELET ESTIMATE DECREASED (NORMAL)
[2024-06-22 08:30] LABS: PLATELET COUNT 23 K/uL (150-450)
[2024-06-22 08:34] LABS: C-REACTIVE PROTEIN 7.17 MG/DL (0.00-0.29)
[2024-06-22] MEDS ORDERED: AMIODARONE HCL 200 MG TABLET PO SCH (09:00)
[2024-06-22 09:31] LABS: URINE APPEARANCE TURBID; URINE COLOR ORANGE
[2024-06-22 09:32] LABS: URINE BILIRRUBIN SMALL (NEGATIVE); URINE GLUCOSE NEGATIVE (NEGATIVE); URINE KETONE NEGATIVE (NEGATIVE)
[2024-06-22 09:33] LABS: URINE BLOOD MODERATE; URINE LEUKOCYTE MODERATE; URINE NITRATE POSITIVE; URINE PROTEIN 300 (NEGATIVE); URINE RBC 392.2 uL (0.0-20.8)
[2024-06-22 09:34] LABS: URINE BACTERIA 132.1 uL (0.0-1933); URINE EPITHELIAL CELLS 11.2 uL (0.0-38.8); URINE WBC 31 uL (0.0-23.2); URINE YEAST FEW /hpf
[2024-06-22] MEDS ORDERED: HEPARIN SODIUM,PORCINE 5,000 UNITS/ML VIAL ONE (20:53)
[2024-06-23 02:06] LABS: HEMATOCRIT 28.1 % (36.0-45.00); MEAN CELL VOLUME 94.6 fL (80.00-100.00); MEAN CORPUSCULAR HGB CONC 34.2 g/dl (32.0-36.0); RED BLOOD COUNT 2.97 M/uL (4.00-6.00); RED CELL DISTRIBUTION WIDTH 18.1 % (11.5-14.5)
[2024-06-23 02:48] LABS: MEAN CORPUSCULAR HEMOGLOBIN 32.3 pg (27.00-32.0)
[2024-06-23 02:50] LABS: PLATELET COUNT 25 K/uL (150-450)
[2024-06-23 03:12] LABS: HEMOGLOBIN 9.6 g/dL (12.0-15.00)
[2024-06-23 03:58] VITALS: BP 137/52; O2SAT 100
[2024-06-23 07:41] VITALS: BP 126/71; O2SAT 100
[2024-06-23 12:00] VITALS: BP 121/62; O2SAT 100
[2024-06-23] MEDS ORDERED: IPRATROPIUM BROMIDE 0.5 MG/2.5 ML AMPUL.NEB IH ONE (13:37)
[2024-06-23 16:11] VITALS: BP 113/39; O2SAT 100
[2024-06-23 20:00] VITALS: BP 124/66; O2SAT 100
[2024-06-23 23:13] VITALS: BP 123/75; O2SAT 100
[2024-06-24 04:15] VITALS: BP 133/31; O2SAT 100
[2024-06-24 07:28] VITALS: BP 119/71; O2SAT 100
[2024-06-24 12:00] VITALS: BP 118/57; O2SAT 97
[2024-06-24 16:00] VITALS: BP 135/53; O2SAT 100
[2024-06-24 20:00] VITALS: BP 126/47; O2SAT 99
[2024-06-24 23:05] VITALS: BP 121/44; O2SAT 100
[2024-06-25] VITALS (9 sets, daily range): BP systolic 66–156; BP diastolic 27–84; O2SAT 99–100
[2024-06-25 00:34] LABS: ob NEGATIVE (NEGATIVE)
[2024-06-25 11:14] LABS: ALBUMIN 1.9 gm/dL (3.4-5.0); BILIRUBIN TOTAL 0.63 mg/dL (0.3-1.2); CALCIUM 7.9 mg/dL (8.5-10.1); PHOSPHOROUS 3.2 mg/dL (2.5-4.9); TOTAL PROTEIN 4.9 gm/dL (6.4-8.2)
[2024-06-25 11:24] LABS: GFR 7.84
[2024-06-25 11:25] LABS: CREATININE SERUM 5.28 mg/dL (0.55-1.02); POTASSIUM 2.93 mEq/L (3.5-5.1)
[2024-06-25] MEDS ORDERED: POTASSIUM CHLORIDE IN WATER 40 MEQ/100 ML PIGGYBAG IV SCH (13:00)
[2024-06-25] MEDS ORDERED: HEPARIN SODIUM,PORCINE 5,000 UNITS/ML VIAL IV NR (19:00)
[2024-06-25] MEDS ORDERED: NOREPINEPHRINE BITARTRATE 1 MG/ML AMPUL IV ONE (20:39)
[2024-06-25] MEDS ORDERED: NOREPINEPHRINE BITARTRATE 8 MG in DEXTROSE 5 % IN WATER 250 ML IV SCH (20:45)
[2024-06-26] VITALS (16 sets, daily range): BP systolic 81–148; BP diastolic 20–97; O2SAT 99–100
[2024-06-26] MEDS ORDERED: METHYLPREDNISOLONE SOD SUCC 40 MG VIAL IV STA (03:27)
[2024-06-26 07:04] LABS: HEMATOCRIT 29.2 % (36.0-45.00); MEAN CELL VOLUME 97.1 fL (80.00-100.00); MEAN CORPUSCULAR HGB CONC 32.8 g/dl (32.0-36.0); RED CELL DISTRIBUTION WIDTH 17.9 % (11.5-14.5)
[2024-06-26 07:14] LABS: HEMOGLOBIN 9.6 g/dL (12.0-15.00)
[2024-06-26 08:08] LABS: PLATELET COUNT 46 K/uL (150-450)
[2024-06-26] MEDS ORDERED: METHYLPREDNISOLONE SOD SUCC 40 MG VIAL IV SCH (09:00)
[2024-06-26] MEDS ORDERED: CEFEPIME HCL 1,000 MG in 0.9 % SODIUM CHLORIDE 50 ML IV SCH (21:50)
[2024-06-27 04:00] VITALS: BP 155/56; O2SAT 100
[2024-06-27] MEDS ORDERED: VANCOMYCIN HCL 1,000 MG VIAL IV STA (05:49)
[2024-06-27] MEDS ORDERED: VANCOMYCIN HCL 1,000 MG VIAL ONE (07:09)
[2024-06-27 07:20] VITALS: BP 131/53; O2SAT 100
[2024-06-27] MEDS ORDERED: FLUDROCORTISONE ACETATE 0.1 MG TABLET PO SCH (09:00)
[2024-06-27] MEDS ORDERED: METOPROLOL TARTRATE 50 MG TABLET PO SCH (09:00)
[2024-06-27 10:27] LABS: ALBUMIN 2.2 gm/dL (3.4-5.0); CREATININE SERUM 3.57 mg/dL (0.55-1.02); GFR 12.32; MAGNESIUM 1.5 mg/dL (1.8-2.4); POTASSIUM 3.56 mEq/L (3.5-5.1)
[2024-06-27 11:07] LABS: HEMATOCRIT 25.4 % (36.0-45.00); MEAN CELL VOLUME 96.9 fL (80.00-100.00); MEAN CORPUSCULAR HGB CONC 33.1 g/dl (32.0-36.0); PLATELET COUNT 103 K/uL (150-450); RED BLOOD COUNT 2.62 M/uL (4.00-6.00); RED CELL DISTRIBUTION WIDTH 17.9 % (11.5-14.5)
[2024-06-27 11:08] LABS: HEMOGLOBIN 8.4 g/dL (12.0-15.00)
[2024-06-27 12:07] VITALS: BP 130/60; O2SAT 100
[2024-06-27 15:22] VITALS: BP 134/83; O2SAT 98
[2024-06-27] MEDS ORDERED: (FF) Daptomycin 50 MG/ML IV SCH (17:00)
[2024-06-27] MEDS ORDERED: VANCOMYCIN HCL 5 MG/ML REDILUIDO SPEPROC SCH (17:00)
[2024-06-27 20:00] VITALS: BP 142/48; O2SAT 100
[2024-06-27 23:02] VITALS: BP 138/97; O2SAT 100
[2024-06-28 06:09] VITALS: BP 125/55; O2SAT 100
[2024-06-28 07:21] VITALS: BP 132/60; O2SAT 100
[2024-06-28] MEDS ORDERED: Calcium Acetate 667 MG CAP PO SCH (08:00)
[2024-06-28] MEDS ORDERED: CALCITRIOL 0.25 MCG CAPSULE PO SCH (09:00)
[2024-06-28] MEDS ORDERED: PANTOPRAZOLE SODIUM 40 MG TABLET.DR PO SCH (09:00)
[2024-06-28] MEDS ORDERED: AMINO ACIDS/PROTEIN HYDROLYS 30 ML BLIST.PACK PO SCH (09:00)
[2024-06-28] MEDS ORDERED: BUMETANIDE 1 MG TABLET PO SCH (09:00)
[2024-06-28] MEDS ORDERED: ATORVASTATIN CALCIUM 40 MG TABLET PO SCH (09:00)
[2024-06-28] MEDS ORDERED: PREDNISONE 10 MG TABLET PO SCH (09:00)
[2024-06-28] MEDS ORDERED: MAGNESIUM SULFATE 50% 1,000 MG/2 ML VIAL IM NR (11:00)
[2024-06-28 12:00] VITALS: BP 136/66; O2SAT 100
[2024-06-28 15:08] VITALS: BP 148/52; O2SAT 99
[2024-06-28] MEDS ORDERED: EMPAGLIFLOZIN 10 MG TABLET PO SCH (17:00)
[2024-06-28 20:00] VITALS: BP 140/44; O2SAT 100
[2024-06-28 22:57] VITALS: BP 136/51; O2SAT 100
[2024-06-29 06:45] LABS: HEMATOCRIT 23.7 % (36.0-45.00); MEAN CORPUSCULAR HGB CONC 32.8 g/dl (32.0-36.0); RED BLOOD COUNT 2.39 M/uL (4.00-6.00); RED CELL DISTRIBUTION WIDTH 18.1 % (11.5-14.5)
[2024-06-29 06:56] LABS: HEMOGLOBIN 7.8 g/dL (12.0-15.00); MEAN CORPUSCULAR HEMOGLOBIN 32.6 pg (27.00-32.0); PLATELET COUNT 62 K/uL (150-450)
[2024-06-29 07:11] VITALS: BP 137/64; O2SAT 100
[2024-06-29] MEDS ORDERED: FUROsemide 40 MG/4 ML VIAL IV SCH (07:15)
[2024-06-29] MEDS ORDERED: FLUDROCORTISONE ACETATE 0.1 MG TABLET PO SCH (09:00)
[2024-06-29 12:00] VITALS: BP 123/71; O2SAT 99
[2024-06-29 15:11] VITALS: BP 140/82; O2SAT 98
[2024-06-29] MEDS ORDERED: HEPARIN SODIUM,PORCINE 5,000 UNITS/ML VIAL ONE (17:25)
[2024-06-29 20:00] VITALS: BP 136/31; O2SAT 100
[2024-06-29 23:07] VITALS: BP 145/56; O2SAT 99
[2024-06-30 04:05] VITALS: BP 155/43; O2SAT 100
[2024-06-30 07:06] VITALS: BP 155/52; O2SAT 100
[2024-06-30] MEDS ORDERED: POTASSIUM PHOS,M-BASIC-D-BASIC 3 MM/ML VIAL IV ONE (09:00)
[2024-06-30 11:56] VITALS: BP 160/48; O2SAT 99
[2024-06-30 13:59] LABS: HEMATOCRIT 31.6 % (36.0-45.00); MEAN CELL VOLUME 93.2 fL (80.00-100.00); MEAN CORPUSCULAR HEMOGLOBIN 32.6 pg (27.00-32.0); RED BLOOD COUNT 3.39 M/uL (4.00-6.00); RED CELL DISTRIBUTION WIDTH 17.8 % (11.5-14.5)
[2024-06-30 14:00] LABS: PLATELET COUNT 67 K/uL (150-450)
[2024-06-30 15:03] VITALS: BP 156/52; O2SAT 100
[2024-06-30 20:00] VITALS: BP 151/59; O2SAT 100
[2024-06-30 23:02] VITALS: BP 159/50; O2SAT 100
[2024-07-01 04:00] VITALS: BP 154/46; O2SAT 99
[2024-07-01 07:22] VITALS: BP 161/53; O2SAT 100
[2024-07-01 07:39] LABS: HEMATOCRIT 32.7 % (36.0-45.00); HEMOGLOBIN 11.1 g/dL (12.0-15.00); MEAN CELL VOLUME 93.9 fL (80.00-100.00); MEAN CORPUSCULAR HEMOGLOBIN 31.9 pg (27.00-32.0); RED BLOOD COUNT 3.49 M/uL (4.00-6.00); RED CELL DISTRIBUTION WIDTH 17.7 % (11.5-14.5)
[2024-07-01 08:02] LABS: PLATELET COUNT 40 K/uL (150-450)
[2024-07-01 12:02] VITALS: BP 150/94; O2SAT 99
[2024-07-01 15:15] VITALS: BP 148/32; O2SAT 100
[2024-07-01 20:32] VITALS: BP 131/45; O2SAT 100
[2024-07-02 00:29] VITALS: BP 165/86
[2024-07-02 07:26] LABS: ALBUMIN 1.8 gm/dL (3.4-5.0); BILIRUBIN TOTAL 0.7 mg/dL (0.3-1.2); CALCIUM 8.9 mg/dL (8.5-10.1); CREATININE SERUM 2.82 mg/dL (0.55-1.02); GFR 16.17; GLOBULINA 2.8 G/DL (2.4-3.5); PHOSPHOROUS 2.8 mg/dL (2.5-4.9); TOTAL PROTEIN 4.6 gm/dL (6.4-8.2)
[2024-07-02 08:23] LABS: POTASSIUM 2.79 mEq/L (3.5-5.1)
[2024-07-02 08:45] VITALS: BP 158/57; O2SAT 99
[2024-07-02] MEDS ORDERED: POLYETHYLENE GLYCOL 3350 17 GM BLIST.PACK PO NR (10:00)
[2024-07-02] MEDS ORDERED: POTASSIUM CHLORIDE IN WATER 40 MEQ/100 ML PIGGYBAG IV ONE (16:45)
[2024-07-02 17:14] VITALS: BP 195/80
[2024-07-02] MEDS ORDERED: SODIUM CHLORIDE 0.45 % 1,000 ML IV SCH (20:15)
[2024-07-02] MEDS ORDERED: MAGNESIUM SULFATE IN WATER 4 GM/100 ML PIGGYBACK IV ONE (20:15)
[2024-07-02] MEDS ORDERED: MAGNESIUM SULFATE IN WATER 2 GM/50 ML PIGGYBAG IV ONE (20:24)
[2024-07-03 02:12] VITALS: BP 172/53; O2SAT 97
[2024-07-03] MEDS ORDERED: POTASSIUM CHLORIDE IN WATER 100 ML IV SCH (05:00)
[2024-07-03 07:39] LABS: ALBUMIN 2.2 gm/dL (3.4-5.0); CALCIUM 9.8 mg/dL (8.5-10.1); CREATININE SERUM 2.46 mg/dL (0.55-1.02); GFR 18.93; MAGNESIUM 1.6 mg/dL (1.8-2.4); PHOSPHOROUS 2.8 mg/dL (2.5-4.9)
[2024-07-03 08:00] VITALS: BP 165/55
[2024-07-03 08:14] LABS: POTASSIUM 2.89 mEq/L (3.5-5.1)
[2024-07-03 12:45] LABS: HEMATOCRIT 36.3 % (36.0-45.00); MEAN CORPUSCULAR HGB CONC 32.2 g/dl (32.0-36.0); PLATELET COUNT 41 K/uL (150-450); RED BLOOD COUNT 3.78 M/uL (4.00-6.00); RED CELL DISTRIBUTION WIDTH 17.4 % (11.5-14.5)
[2024-07-03 12:46] LABS: HEMOGLOBIN 11.7 g/dL (12.0-15.00); MEAN CORPUSCULAR HEMOGLOBIN 30.9 pg (27.00-32.0)
[2024-07-03] MEDS ORDERED: NA PHOS,M-B/NA PHOS,DI-BA 1 BOTTLE ENEMA RECTAL STA (13:12)
[2024-07-03 17:43] VITALS: BP 163/67
[2024-07-04 00:32] LABS: ALBUMIN 2.4 gm/dL (3.4-5.0); BILIRUBIN TOTAL 0.72 mg/dL (0.3-1.2); CALCIUM 9.9 mg/dL (8.5-10.1); GFR 19.11; GLOBULINA 3.3 G/DL (2.4-3.5); POTASSIUM 3.92 mEq/L (3.5-5.1); TOTAL PROTEIN 5.7 gm/dL (6.4-8.2)
[2024-07-04 00:33] LABS: CREATININE SERUM 2.44 mg/dL (0.55-1.02)
[2024-07-04 01:00] VITALS: BP 164/57
[2024-07-04 07:09] LABS: HEMATOCRIT 35.6 % (36.0-45.00); HEMOGLOBIN 11.4 g/dL (12.0-15.00); MEAN CELL VOLUME 96.5 fL (80.00-100.00); MEAN CORPUSCULAR HEMOGLOBIN 30.9 pg (27.00-32.0); RED BLOOD COUNT 3.69 M/uL (4.00-6.00); RED CELL DISTRIBUTION WIDTH 17.1 % (11.5-14.5)
[2024-07-04 07:10] LABS: PLATELET COUNT 45 K/uL (150-450)
[2024-07-04 07:12] LABS: ALBUMIN 2.2 gm/dL (3.4-5.0); BILIRUBIN TOTAL 0.75 mg/dL (0.3-1.2); CALCIUM 9.9 mg/dL (8.5-10.1); CREATININE SERUM 2.39 mg/dL (0.55-1.02); GFR 19.57; GLOBULINA 2.9 G/DL (2.4-3.5); PHOSPHOROUS 2.8 mg/dL (2.5-4.9); TOTAL PROTEIN 5.1 gm/dL (6.4-8.2)
[2024-07-04 07:39] LABS: MAGNESIUM 1.2 mg/dL (1.8-2.4); POTASSIUM 2.88 mEq/L (3.5-5.1)
[2024-07-04 08:17] VITALS: BP 146/60
[2024-07-04] MEDS ORDERED: MAGNESIUM SULFATE IN WATER 50 ML IV NR (09:00)
[2024-07-04] MEDS ORDERED: POTASSIUM CHLORIDE IN WATER 40 MEQ/100 ML PIGGYBAG IV SCH (09:00)
[2024-07-04 09:13] LABS: URINE PROT QUANT 24HR 72.2 MG/DL
[2024-07-04 09:15] LABS: URINE PROT QUANT 24 HR 2021.6 MG/24HR (42-225)
[2024-07-04 09:38] LABS: CREATININE SERUM 2.39 mg/dL (0.6-1.0)
[2024-07-04 17:12] VITALS: BP 160/55; O2SAT 97
[2024-07-04] MEDS ORDERED: POTASSIUM CHLORIDE IN WATER 40 MEQ/100 ML PIGGYBAG IV ONE (17:27)
[2024-07-04] MEDS ORDERED: POTASSIUM CHLORIDE/D5-0.9%NACL 1,000 ML IV ONE (20:45)
[2024-07-04] MEDS ORDERED: MAGNESIUM SULFATE IN WATER 50 ML IV ONE (20:45)
[2024-07-04] MEDS ORDERED: LACTULOSE 10 G/15 ML ML RECTAL ONE (20:45)
[2024-07-05 02:29] VITALS: BP 170/62
[2024-07-05 09:13] VITALS: BP 138/47; O2SAT 88
[2024-07-05 09:55] LABS: ALBUMIN 2.3 gm/dL (3.4-5.0); CALCIUM 10.4 mg/dL (8.5-10.1); CREATININE SERUM 2.38 mg/dL (0.55-1.02); GFR 19.66; MAGNESIUM 1.8 mg/dL (1.8-2.4); PHOSPHOROUS 2.7 mg/dL (2.5-4.9); POTASSIUM 4.31 mEq/L (3.5-5.1)
[2024-07-05] MEDS ORDERED: MEROPENEM 500 MG/VIAL VIAL IV NR (12:00)
[2024-07-05] MEDS ORDERED: INSULIN NPH HUM/REG INSULIN HM 1,000 UNIT/10 ML UNITS SUBCUTANEO SCH (17:00)
[2024-07-05 17:37] VITALS: BP 196/66
[2024-07-05 20:03] LABS: URINE APPEARANCE Turbid; URINE BILIRRUBIN Negative (NEGATIVE); URINE BLOOD Moderate; URINE COLOR Yellow; URINE KETONE Negative (NEGATIVE); URINE LEUKOCYTE Small; URINE NITRATE Negative; URINE PROTEIN Trace (NEGATIVE); URINE UROBILINOGEN 0.2 E.U./dl
[2024-07-05 20:07] LABS: URINE EPITHELIAL CELLS 11.9 uL (0.0-38.8); URINE RBC 408.1 uL (0.0-20.8); URINE WBC 149.3 uL (0.0-23.2)
[2024-07-05 20:52] LABS: URINE CAST 1.08 uL (0.0-1.40); URINE GLUCOSE 500 MG/DL (NEGATIVE)
[2024-07-05 20:53] LABS: URINE YEAST MANY /hpf
[2024-07-05] MEDS ORDERED: MEROPENEM 500 MG/VIAL VIAL IV SCH (21:00)
[2024-07-06 02:32] VITALS: BP 123/46
[2024-07-06 05:56] LABS: HEMATOCRIT 37.6 % (36.0-45.00); HEMOGLOBIN 12.1 g/dL (12.0-15.00); MEAN CELL VOLUME 96.7 fL (80.00-100.00); MEAN CORPUSCULAR HEMOGLOBIN 31.2 pg (27.00-32.0); MEAN CORPUSCULAR HGB CONC 32.2 g/dl (32.0-36.0); RED BLOOD COUNT 3.88 M/uL (4.00-6.00); RED CELL DISTRIBUTION WIDTH 17.3 % (11.5-14.5)
[2024-07-06 05:58] LABS: PLATELET COUNT 64 K/uL (150-450)
[2024-07-06] MEDS ORDERED: INSULIN NPH HUM/REG INSULIN HM 1,000 UNIT/10 ML UNITS SUBCUTANEO SCH (08:00)
[2024-07-06 09:39] VITALS: BP 144/53; O2SAT 97
[2024-07-06 17:03] VITALS: BP 179/60
[2024-07-06] MEDS ORDERED: LACTULOSE 20 G/30 ML BLIST.PACK PO SCH (21:00)
[2024-07-06] MEDS ORDERED: NA PHOS,M-B/NA PHOS,DI-BA 1 BOTTLE ENEMA RECTAL ONE (21:15)
[2024-07-07 02:23] VITALS: BP 99/56
[2024-07-07 08:20] VITALS: BP 163/55
[2024-07-07] MEDS ORDERED: NA PHOS,M-B/NA PHOS,DI-BA 1 BOTTLE ENEMA RECTAL NR (12:15)
[2024-07-07 17:28] VITALS: BP 146/53; O2SAT 92
[2024-07-08 03:28] VITALS: BP 174/74
[2024-07-08] MEDS ORDERED: NA PHOS,M-B/NA PHOS,DI-BA 1 BOTTLE ENEMA RECTAL ONE (06:00)
[2024-07-08 09:03] VITALS: BP 172/60
[2024-07-08 18:41] VITALS: BP 152/68; O2SAT 99
[2024-07-09 03:07] VITALS: BP 170/60
[2024-07-09 07:49] LABS: HEMATOCRIT 35.6 % (36.0-45.00); HEMOGLOBIN 11.7 g/dL (12.0-15.00); MEAN CELL VOLUME 95.1 fL (80.00-100.00); MEAN CORPUSCULAR HEMOGLOBIN 31.3 pg (27.00-32.0); MEAN CORPUSCULAR HGB CONC 32.9 g/dl (32.0-36.0); RED BLOOD COUNT 3.74 M/uL (4.00-6.00); RED CELL DISTRIBUTION WIDTH 17.3 % (11.5-14.5)
[2024-07-09 08:17] LABS: PLATELET COUNT 89 K/uL (150-450)
[2024-07-09 08:55] VITALS: BP 143/57; O2SAT 97
[2024-07-09] MEDS ORDERED: NIFEDIPINE 30 MG TAB.SA.OSM PO SCH (09:00)
[2024-07-09 13:42] LABS: ALBUMIN 2.3 gm/dL (3.4-5.0); BILIRUBIN TOTAL 1.08 mg/dL (0.3-1.2); CREATININE SERUM 2.48 mg/dL (0.55-1.02); GFR 18.75; GLOBULINA 3.5 G/DL (2.4-3.5); POTASSIUM 3.04 mEq/L (3.5-5.1); TOTAL PROTEIN 5.8 gm/dL (6.4-8.2)
[2024-07-09 16:35] VITALS: BP 131/60
[2024-07-10 00:34] VITALS: BP 140/55
[2024-07-10 08:50] VITALS: BP 168/60; O2SAT 97
[2024-07-10] MEDS ORDERED: POTASSIUM CHLORIDE 20MEQ/100ML H2O PB IV NR (09:00)
[2024-07-10] MEDS ORDERED: EMOLLIENTS 6 OZ BOTTLE TOP SCH (17:55)
[2024-07-10 17:58] VITALS: BP 150/51
[2024-07-10] MEDS ORDERED: ACETAZOLAMIDE SODIUM 250 MG in DEXTROSE 5 % IN WATER 100 ML IV SCH (18:12)
[2024-07-10] MEDS ORDERED: ACETAZOLAMIDE SODIUM 500 MG VIAL IV SCH (19:00)
[2024-07-11 01:27] VITALS: BP 157/62
[2024-07-11 06:24] LABS: HEMATOCRIT 36.7 % (36.0-45.00); HEMOGLOBIN 11.9 g/dL (12.0-15.00); MEAN CELL VOLUME 95.8 fL (80.00-100.00); MEAN CORPUSCULAR HEMOGLOBIN 30.9 pg (27.00-32.0); MEAN CORPUSCULAR HGB CONC 32.3 g/dl (32.0-36.0); RED BLOOD COUNT 3.83 M/uL (4.00-6.00); RED CELL DISTRIBUTION WIDTH 16.8 % (11.5-14.5)
[2024-07-11 06:33] LABS: PLATELET COUNT 84 K/uL (150-450)
[2024-07-11 07:19] LABS: ALBUMIN 2.1 gm/dL (3.4-5.0); BILIRUBIN TOTAL 0.75 mg/dL (0.3-1.2); CALCIUM 10.5 mg/dL (8.5-10.1); CREATININE SERUM 2.25 mg/dL (0.55-1.02); GFR 20.98; GLOBULINA 3.1 G/DL (2.4-3.5); PHOSPHOROUS 2.6 mg/dL (2.5-4.9); TOTAL PROTEIN 5.2 gm/dL (6.4-8.2)
[2024-07-11 07:57] LABS: MAGNESIUM 0.7 mg/dL (1.8-2.4); POTASSIUM 2.85 mEq/L (3.5-5.1)
[2024-07-11] MEDS ORDERED: METOPROLOL TARTRATE 50 MG TABLET PO SCH (09:00)
[2024-07-11] MEDS ORDERED: METOPROLOL TARTRATE 50 MG,METOPROLOL TARTRATE 25 MG PO SCH (09:00)
[2024-07-11 09:06] VITALS: BP 148/96
[2024-07-11] MEDS ORDERED: MAGNESIUM SULFATE IN WATER 4 GM/100 ML PIGGYBACK IV NR (14:00)
[2024-07-11] MEDS ORDERED: POTASSIUM CHLORIDE IN WATER 100 ML IV NR (17:00)
[2024-07-11 17:22] VITALS: BP 148/56; O2SAT 97
[2024-07-11] MEDS ORDERED: ACETAZOLAMIDE SODIUM 250 MG in DEXTROSE 5 % IN WATER 100 ML IV SCH (18:00)
[2024-07-11 18:13] LABS: ABG PH 7.439 (7.35-7.45); ABG pCO2 53.4 mmHg (35-45); BASE EXCESS 9.2 mmol/l; BICARBONATE 35.3 mmol/l (23-25); SaO2 87.8 %
[2024-07-11 18:21] LABS: ABG PO2 50.6 mmHg (80-100); allen test SATISFACTORY; puncture site RADIAL RIGHT
[2024-07-11 18:22] LABS: o2 21 %
[2024-07-11] MEDS ORDERED: ACETAZOLAMIDE SODIUM 500 MG VIAL IV SCH (20:00)
[2024-07-11] MEDS ORDERED: POTASSIUM CHLORIDE IN WATER 40 MEQ/100 ML PIGGYBAG IV ONE (21:16)
[2024-07-12 02:50] VITALS: BP 154/55
[2024-07-12 07:00] VITALS: BP 143/66
[2024-07-12 07:20] LABS: CALCIUM 11.1 mg/dL (8.5-10.1); CREATININE SERUM 2.36 mg/dL (0.55-1.02); GFR 19.86; MAGNESIUM 1.8 mg/dL (1.8-2.4); POTASSIUM 3.3 mEq/L (3.5-5.1)
[2024-07-12 16:00] VITALS: BP 138/52
== END 2024-07-12 17:12 | DRG 871 ==
LOC: ER 22:35 → MEDJ 06-09 19:10 → MEDI 06-09 19:10 → SEC-K 06-09 19:24 → MEDJ 06-09 22:52 → ICU 06-21 06:27 → MEDJ 07-01 21:26
PROVIDERS: General Practice; Internal Medicine; Internal Medicine Critical Care Medicine; Internal Medicine Hematology & Oncology; Internal Medicine Infectious Disease; Internal Medicine Nephrology; ADMIT Internal Medicine; ATTEND Internal Medicine
PROC: B246ZZZ Ultrasonography of Right and Left Heart (ICD-10-PCS; 2024-06-09)
PROC: B020ZZZ Computerized Tomography (CT Scan) of Brain (ICD-10-PCS; 2024-06-09)
PROC: 4A12X4Z Monitoring of Cardiac Electrical Activity, External Approach (ICD-10-PCS; 2024-06-09)
PROC: 3E0F7GC Introduction of Other Therapeutic Substance into Respiratory Tract, Via Natural or Artificial Opening (ICD-10-PCS; 2024-06-10)
PROC: 5A1D70Z Performance of Urinary Filtration, Intermittent, Less than 6 Hours Per Day (ICD-10-PCS; principal; 2024-06-11)
PROC: B54CZZA Ultrasonography of Left Lower Extremity Veins, Guidance (ICD-10-PCS; 2024-06-11)
PROC: 06HY33Z Insertion of Infusion Device into Lower Vein, Percutaneous Approach (ICD-10-PCS; 2024-06-11)
PROC: BW21ZZZ Computerized Tomography (CT Scan) of Abdomen and Pelvis (ICD-10-PCS; 2024-06-11)
PROC: BT43ZZZ Ultrasonography of Bilateral Kidneys (ICD-10-PCS; 2024-06-11)
PROC: 5A1D70Z Performance of Urinary Filtration, Intermittent, Less than 6 Hours Per Day (ICD-10-PCS; 2024-06-15)
PROC: B020ZZZ Computerized Tomography (CT Scan) of Brain (ICD-10-PCS; 2024-06-15)
PROC: 5A1D70Z Performance of Urinary Filtration, Intermittent, Less than 6 Hours Per Day (ICD-10-PCS; 2024-06-18)
PROC: 02HV33Z Insertion of Infusion Device into Superior Vena Cava, Percutaneous Approach (ICD-10-PCS; 2024-06-19)
PROC: 3E04329 Introduction of Other Anti-infective into Central Vein, Percutaneous Approach (ICD-10-PCS; 2024-06-19)
PROC: 5A1D70Z Performance of Urinary Filtration, Intermittent, Less than 6 Hours Per Day (ICD-10-PCS; 2024-06-20)
PROC: B54DZZZ Ultrasonography of Bilateral Lower Extremity Veins (ICD-10-PCS; 2024-06-20)
PROC: B54PZZZ Ultrasonography of Bilateral Upper Extremity Veins (ICD-10-PCS; 2024-06-21)
PROC: 5A1D70Z Performance of Urinary Filtration, Intermittent, Less than 6 Hours Per Day (ICD-10-PCS; 2024-06-22)
PROC: 30233N1 Transfusion of Nonautologous Red Blood Cells into Peripheral Vein, Percutaneous Approach (ICD-10-PCS; 2024-06-22)
PROC: 5A1D70Z Performance of Urinary Filtration, Intermittent, Less than 6 Hours Per Day (ICD-10-PCS; 2024-06-25)
PROC: 5A1D70Z Performance of Urinary Filtration, Intermittent, Less than 6 Hours Per Day (ICD-10-PCS; 2024-06-27)
PROC: BW40ZZZ Ultrasonography of Abdomen (ICD-10-PCS; 2024-06-27)
PROC: 30233R1 Transfusion of Nonautologous Platelets into Peripheral Vein, Percutaneous Approach (ICD-10-PCS; 2024-06-27)
PROC: 06PYX3Z Removal of Infusion Device from Lower Vein, External Approach (ICD-10-PCS; 2024-06-29)
DX: A41.89 Other specified sepsis (principal); N18.6 End stage renal disease; T80.211A Bloodstream infection due to central venous catheter, initial encounter; N17.9 Acute kidney failure, unspecified; B37.49 Other urogenital candidiasis; J44.1 Chronic obstructive pulmonary disease with (acute) exacerbation; J45.51 Severe persistent asthma with (acute) exacerbation; C90.00 Multiple myeloma not having achieved remission; E27.3 Drug-induced adrenocortical insufficiency; I24.89 Other forms of acute ischemic heart disease; I48.20 Chronic atrial fibrillation, unspecified; I12.0 Hypertensive chronic kidney disease with stage 5 chronic kidney disease or end stage renal disease; E11.65 Type 2 diabetes mellitus with hyperglycemia; E11.622 Type 2 diabetes mellitus with other skin ulcer; L89.312 Pressure ulcer of right buttock, stage 2; L89.892 Pressure ulcer of other site, stage 2; D69.6 Thrombocytopenia, unspecified; D53.9 Nutritional anemia, unspecified; R56.9 Unspecified convulsions; T38.0X5A Adverse effect of glucocorticoids and synthetic analogues, initial encounter; E87.6 Hypokalemia; I95.3 Hypotension of hemodialysis; D63.1 Anemia in chronic kidney disease; E11.22 Type 2 diabetes mellitus with diabetic chronic kidney disease; I87.2 Venous insufficiency (chronic) (peripheral); E03.9 Hypothyroidism, unspecified; E78.5 Hyperlipidemia, unspecified; Y65.8 Other specified misadventures during surgical and medical care; Z79.4 Long term (current) use of insulin; Z99.2 Dependence on renal dialysis; B95.7 Other staphylococcus as the cause of diseases classified elsewhere; B96.89 Other specified bacterial agents as the cause of diseases classified elsewhere

== ENCOUNTER 2024-07-16 17:46 | Inpatient (IN) | payer OTHER ==
[~2024-07-16] VITALS: Ht 160 cm; Wt 117.9 kg
[2024-07-16 20:00] LABS: HEMOGLOBIN 12.5 g/dL (12.0-15.00); MEAN CELL VOLUME 94.9 fL (80.00-100.00); MEAN CORPUSCULAR HEMOGLOBIN 30.5 pg (27.00-32.0); MEAN CORPUSCULAR HGB CONC 32.1 g/dl (32.0-36.0); RED BLOOD COUNT 4.11 M/uL (4.00-6.00); RED CELL DISTRIBUTION WIDTH 17.1 % (11.5-14.5)
[2024-07-16 20:10] LABS: ALBUMIN 2.4 gm/dL (3.4-5.0); BILIRUBIN TOTAL 0.63 mg/dL (0.3-1.2); CALCIUM 9.3 mg/dL (8.5-10.1); CREATININE SERUM 3.26 mg/dL (0.55-1.02); GFR 13.68; GLOBULINA 3.4 G/DL (2.4-3.5); POTASSIUM 4.1 mEq/L (3.5-5.1); TOTAL PROTEIN 5.8 gm/dL (6.4-8.2)
[2024-07-16 20:20] LABS: PLATELET COUNT 58 K/uL (150-450)
[2024-07-16 21:05] LABS: URINE APPEARANCE Cloudy; URINE BILIRRUBIN Negative (NEGATIVE); URINE BLOOD Small; URINE COLOR Yellow; URINE KETONE Trace (NEGATIVE); URINE LEUKOCYTE Moderate; URINE NITRATE Negative; URINE PROTEIN 30 (NEGATIVE); URINE UROBILINOGEN 0.2 E.U./dl
[2024-07-16 21:07] LABS: URINE CAST 2.06 uL (0.0-1.40); URINE RBC 285.4 uL (0.0-20.8); URINE WBC 601.3 uL (0.0-23.2)
[2024-07-16 21:35] LABS: URINE BACTERIA > 9821.5 uL (0.0-1933); URINE GLUCOSE >=1000 MG/DL (NEGATIVE); URINE YEAST MANY /hpf
[2024-07-16] MEDS ORDERED: ATORVASTATIN CALCIUM 40 MG TABLET PO SCH (22:49)
[2024-07-16] MEDS ORDERED: FUROsemide 20 MG/2 ML VIAL IV SCH (22:51)
[2024-07-16] MEDS ORDERED: 0.9 % SODIUM CHLORIDE 1,000 ML IV ONE (23:00)
[2024-07-16] MEDS ORDERED: ACETAMINOPHEN 500 MG GEL..CAP PO PRN (23:00)
[2024-07-16] MEDS ORDERED: FUROsemide 40 MG/4 ML VIAL ONE (23:09)
[2024-07-17] VITALS (20 sets, daily range): BP systolic 83–135; BP diastolic 23–86; O2SAT 91–100
[2024-07-17 00:32] LABS: INR 1.15; PARTIAL THROMBOPLASTIN TIME 22.5 SECONDS (22.0-34.0); PROTHROMBIN TIME 12.4 SECONDS (9.0-11.5)
[2024-07-17 00:34] LABS: MAGNESIUM 1.5 mg/dL (1.8-2.4)
[2024-07-17] MEDS ORDERED: IPRATROPIUM BROMIDE 0.5 MG/2.5 ML AMPUL.NEB IH SCH (01:00)
[2024-07-17] MEDS ORDERED: LEVOTHYROXINE SODIUM 50 MCG TABLET PO SCH (06:00)
[2024-07-17] MEDS ORDERED: FAMOTIDINE/PF 20 MG in 0.9 % SODIUM CHLORIDE 8 ML IV PUSH SCH (09:00)
[2024-07-17] MEDS ORDERED: GABAPENTIN 600 MG TABLET PO SCH (09:00)
[2024-07-17] MEDS ORDERED: NOREPINEPHRINE BITARTRATE 1 MG/ML AMPUL IV ONE ×2 (12:18→12:19)
[2024-07-17] MEDS ORDERED: NOREPINEPHRINE BITARTRATE 4 MG in DEXTROSE 5 % IN WATER 250 ML IV SCH (12:30)
[2024-07-17] MEDS ORDERED: NOREPINEPHRINE BITARTRATE 8 MG in DEXTROSE 5 % IN WATER 250 ML IV SCH (12:30)
[2024-07-17] MEDS ORDERED: MEROPENEM 500 MG/VIAL VIAL IV SCH (17:00)
[2024-07-17] MEDS ORDERED: DEXTROSE 50 % IN WATER 0.5 G/ML DISP.SYRIN IV PRN (22:00)
[2024-07-17] MEDS ORDERED: INSULIN LISPRO 1,000 UNIT/10 ML UNITS SUBCUTANEO PRN (22:00)
[2024-07-17 22:25] LABS: ABG PH 7.407 (7.35-7.45); ABG pCO2 39.2 mmHg (35-45)
[2024-07-17 22:26] LABS: ABG PO2 391.7 mmHg (80-100); BASE EXCESS -0.4 mmol/l; BICARBONATE 24.1 mmol/l (23-25); Tco2 25.3 mmol/l
[2024-07-17 22:27] LABS: allen test SATISFACTORY; o2 100 %; puncture site RADIAL RIGHT
[2024-07-18] VITALS (24 sets, daily range): BP systolic 93–160; BP diastolic 38–80; O2SAT 98–100
[2024-07-18] MEDS ORDERED: POTASSIUM PHOS,M-BASIC-D-BASIC 18 MM in 0.9 % SODIUM CHLORIDE 250 ML IV STA (07:25)
[2024-07-18] MEDS ORDERED: MAGNESIUM SULFATE IN WATER 50 ML IV STA (07:25)
[2024-07-18 07:26] LABS: HEMATOCRIT 36.2 % (36.0-45.00); HEMOGLOBIN 12.2 g/dL (12.0-15.00); MEAN CORPUSCULAR HEMOGLOBIN 31.5 pg (27.00-32.0); MEAN CORPUSCULAR HGB CONC 33.9 g/dl (32.0-36.0); RED BLOOD COUNT 3.89 M/uL (4.00-6.00); RED CELL DISTRIBUTION WIDTH 17.4 % (11.5-14.5)
[2024-07-18] MEDS ORDERED: HYDROCORTISONE SODIUM SUCC/PF 100 MG VIAL IV STA (07:27)
[2024-07-18 07:38] LABS: ALBUMIN 2.3 gm/dL (3.4-5.0); BILIRUBIN TOTAL 0.67 mg/dL (0.3-1.2); CALCIUM 8.7 mg/dL (8.5-10.1); GLOBULINA 3.3 G/DL (2.4-3.5); PHOSPHOROUS 2.7 mg/dL (2.5-4.9); POTASSIUM 3.53 mEq/L (3.5-5.1); TOTAL PROTEIN 5.6 gm/dL (6.4-8.2)
[2024-07-18 07:41] LABS: PLATELET COUNT 55 K/uL (150-450)
[2024-07-18 07:58] LABS: C-REACTIVE PROTEIN 2.9 MG/DL (0.00-0.29); GFR 10.18
[2024-07-18 07:59] LABS: CREATININE SERUM 4.21 mg/dL (0.55-1.02); MAGNESIUM 1.4 mg/dL (1.8-2.4)
[2024-07-18] MEDS ORDERED: NOREPINEPHRINE BITARTRATE 1 MG/ML AMPUL IV ONE ×2 (07:59→17:24)
[2024-07-18 08:29] LABS: ABG PH 7.432 (7.35-7.45); ABG PO2 110.9 mmHg (80-100); ABG pCO2 40.3 mmHg (35-45); BASE EXCESS 1.9 mmol/l; BICARBONATE 26.3 mmol/l (23-25); SaO2 98.5 %; Tco2 27.5 mmol/l
[2024-07-18 08:35] LABS: allen test SATISFACTORY; o2 32 %; puncture site RADIAL LEFT
[2024-07-18] MEDS ORDERED: BUMETANIDE 2.5 MG/10 ML VIAL IV SCH (09:00)
[2024-07-18] MEDS ORDERED: PANTOPRAZOLE SODIUM 40 MG/VIAL VIAL IV PUSH SCH (09:00)
[2024-07-18 10:25] LABS: PROCALCITONIN 0.244 ng/ml (0.020-0.080)
[2024-07-18 10:36] LABS: CORTISOL 13.23 ug/dl
[2024-07-18] MEDS ORDERED: HYDROCORTISONE SODIUM SUCC/PF 50 MG/ML ML IV SCH (14:00)
[2024-07-18] MEDS ORDERED: GENTAMICIN SULFATE 40 MG/ML VIAL IV NR (17:00)
[2024-07-18] MEDS ORDERED: (FF) Daptomycin 50 MG/ML IV SCH (18:00)
[2024-07-18] MEDS ORDERED: INSULIN GLARGINE,HUM.REC.ANLOG 1,000 UNITS/10 ML UNITS SUBCUTANEO ONE (20:51)
[2024-07-18] MEDS ORDERED: INSULIN GLARGINE,HUM.REC.ANLOG 1,000 UNITS/10 ML UNITS SUBCUTANEO SCH (21:00)
[2024-07-19] VITALS (11 sets, daily range): BP systolic 98–139; BP diastolic 44–774; O2SAT 97–100
[2024-07-19] MEDS ORDERED: INSULIN LISPRO 1,000 UNIT/10 ML UNITS SUBCUTANEO SCH (08:00)
[2024-07-19] MEDS ORDERED: SOD FERRIC GLUC COMPLX/SUCROSE 125 MG in 0.9 % SODIUM CHLORIDE 100 ML IV SCH (09:00)
[2024-07-19] MEDS ORDERED: DILTIAZEM HCL 30 MG TABLET PO SCH (09:00)
[2024-07-19] MEDS ORDERED: IRON FUM,PS/FOLIC/BCOMP,C NO.9 1 CAP CAPSULE PO SCH (09:29)
[2024-07-19] MEDS ORDERED: MAGNESIUM SULFATE 50% 1,000 MG/2 ML VIAL IM NR (09:30)
[2024-07-20 04:02] VITALS: BP 127/50; O2SAT 99
[2024-07-20] MEDS ORDERED: LEVOTHYROXINE SODIUM 50 MCG TABLET PO SCH (06:00)
[2024-07-20 07:28] VITALS: BP 119/56; O2SAT 98
[2024-07-20 07:48] LABS: ALBUMIN 1.8 gm/dL (3.4-5.0); BILIRUBIN TOTAL 0.66 mg/dL (0.3-1.2); CALCIUM 7.8 mg/dL (8.5-10.1); CREATININE SERUM 3.61 mg/dL (0.55-1.02); GFR 12.16; GLOBULINA 3.3 G/DL (2.4-3.5); MAGNESIUM 1.9 mg/dL (1.8-2.4); TOTAL PROTEIN 5.1 gm/dL (6.4-8.2)
[2024-07-20 08:06] LABS: HEMATOCRIT 32.7 % (36.0-45.00); HEMOGLOBIN 10.5 g/dL (12.0-15.00); MEAN CELL VOLUME 94.4 fL (80.00-100.00); MEAN CORPUSCULAR HEMOGLOBIN 30.2 pg (27.00-32.0); RED BLOOD COUNT 3.46 M/uL (4.00-6.00); RED CELL DISTRIBUTION WIDTH 17.6 % (11.5-14.5)
[2024-07-20 08:16] LABS: PLATELET COUNT 39 K/uL (150-450)
[2024-07-20 12:00] VITALS: BP 112/40; O2SAT 98
[2024-07-20 15:34] VITALS: BP 117/57; O2SAT 98
[2024-07-20] MEDS ORDERED: GENTAMICIN SULFATE 2.5 MG/ML (Adulto) IV SCH (17:00)
[2024-07-20] MEDS ORDERED: MEROPENEM 500 MG/VIAL VIAL IV SCH (17:00)
[2024-07-20 20:00] VITALS: BP 109/52; O2SAT 98
[2024-07-20] MEDS ORDERED: HYDROCORTISONE SODIUM SUCC/PF 50 MG/ML ML IV SCH (20:00)
[2024-07-20 23:20] VITALS: BP 113/39; O2SAT 98
[2024-07-21 04:07] VITALS: BP 134/46; O2SAT 99
[2024-07-21] MEDS ORDERED: LEVOTHYROXINE SODIUM 50 MCG TABLET PO SCH (06:00)
[2024-07-21 07:18] VITALS: BP 110/45; O2SAT 98
[2024-07-21 08:06] LABS: PH,URINE 5.5 (5.0-8.0); URINE APPEARANCE Turbid; URINE BILIRRUBIN Negative (NEGATIVE); URINE BLOOD Small; URINE COLOR Yellow; URINE GLUCOSE Negative (NEGATIVE); URINE KETONE Negative (NEGATIVE); URINE LEUKOCYTE Moderate; URINE NITRATE Negative; URINE UROBILINOGEN 0.2 E.U./dl
[2024-07-21 08:07] LABS: URINE BACTERIA 351.2 uL (0.0-1933); URINE CAST 9.72 uL (0.0-1.40); URINE EPITHELIAL CELLS 78.8 uL (0.0-38.8); URINE RBC 246.4 uL (0.0-20.8); URINE WBC 491.3 uL (0.0-23.2)
[2024-07-21 08:32] LABS: URINE PROTEIN 100 (NEGATIVE)
[2024-07-21 08:37] LABS: URINE YEAST MANY /hpf
[2024-07-21] MEDS ORDERED: ATORVASTATIN CALCIUM 40 MG TABLET PO SCH (09:00)
[2024-07-21 12:04] VITALS: BP 129/45; O2SAT 100
[2024-07-21 15:40] VITALS: BP 92/58; O2SAT 100
[2024-07-21 20:00] VITALS: BP 129/65; O2SAT 98
[2024-07-21 23:16] VITALS: BP 120/48; O2SAT 99
[2024-07-22 04:00] VITALS: BP 126/44; O2SAT 100
[2024-07-22 07:20] VITALS: BP 144/51; O2SAT 98
[2024-07-22] MEDS ORDERED: INSULIN LISPRO 1,000 UNIT/10 ML UNITS SUBCUTANEO SCH (08:00)
[2024-07-22] MEDS ORDERED: PREDNISONE 10 MG TABLET PO SCH (09:00)
[2024-07-22 12:05] VITALS: BP 128/45; O2SAT 99
[2024-07-22 15:46] VITALS: BP 133/45; O2SAT 99
[2024-07-22 20:00] VITALS: BP 139/56; O2SAT 100
[2024-07-22] MEDS ORDERED: INSULIN GLARGINE,HUM.REC.ANLOG 1,000 UNITS/10 ML UNITS SUBCUTANEO SCH (21:00)
[2024-07-22 23:13] VITALS: BP 155/60; O2SAT 99
[2024-07-23] VITALS (8 sets, daily range): BP systolic 125–138; BP diastolic 66–89; O2SAT 98–100
[2024-07-23 06:46] LABS: HEMATOCRIT 30.8 % (36.0-45.00); HEMOGLOBIN 10.1 g/dL (12.0-15.00); MEAN CELL VOLUME 92.5 fL (80.00-100.00); MEAN CORPUSCULAR HEMOGLOBIN 30.5 pg (27.00-32.0); RED BLOOD COUNT 3.33 M/uL (4.00-6.00); RED CELL DISTRIBUTION WIDTH 17.6 % (11.5-14.5)
[2024-07-23 06:59] LABS: PLATELET COUNT 56 K/uL (150-450)
[2024-07-23 07:34] LABS: ALBUMIN 1.5 gm/dL (3.4-5.0); BILIRUBIN TOTAL 0.73 mg/dL (0.3-1.2); CALCIUM 7.4 mg/dL (8.5-10.1); CREATININE SERUM 2.56 mg/dL (0.55-1.02); GFR 18.08; GLOBULINA 3.8 G/DL (2.4-3.5); POTASSIUM 3.58 mEq/L (3.5-5.1); TOTAL PROTEIN 5.3 gm/dL (6.4-8.2)
[2024-07-23 07:40] LABS: MAGNESIUM 1.8 mg/dL (1.8-2.4)
[2024-07-24] VITALS (8 sets, daily range): BP systolic 139–167; BP diastolic 60–66; O2SAT 97–99
[2024-07-24] MEDS ORDERED: PREDNISONE 10 MG TABLET PO SCH (09:00)
[2024-07-25] VITALS (9 sets, daily range): BP systolic 145–160; BP diastolic 63–85; O2SAT 95–100
[2024-07-25] MEDS ORDERED: INSULIN NPH HUM/REG INSULIN HM 1,000 UNIT/10 ML UNITS SUBCUTANEO SCH (08:00)
[2024-07-26] VITALS (9 sets, daily range): BP systolic 160–183; BP diastolic 61–82; O2SAT 90–100
[2024-07-26 05:05] LABS: HEMATOCRIT 30.8 % (36.0-45.00); MEAN CELL VOLUME 93.9 fL (80.00-100.00); MEAN CORPUSCULAR HGB CONC 32.9 g/dl (32.0-36.0); PLATELET COUNT 75 K/uL (150-450); RED BLOOD COUNT 3.28 M/uL (4.00-6.00); RED CELL DISTRIBUTION WIDTH 17.1 % (11.5-14.5)
[2024-07-26 05:06] LABS: HEMOGLOBIN 10.1 g/dL (12.0-15.00); MEAN CORPUSCULAR HEMOGLOBIN 30.7 pg (27.00-32.0)
[2024-07-26 05:39] LABS: ALBUMIN 1.6 gm/dL (3.4-5.0); BILIRUBIN TOTAL 0.72 mg/dL (0.3-1.2); CALCIUM 7.3 mg/dL (8.5-10.1); CREATININE SERUM 1.7 mg/dL (0.55-1.02); GFR 28.99; PHOSPHOROUS 2.3 mg/dL (2.5-4.9); POTASSIUM 3.87 mEq/L (3.5-5.1); TOTAL PROTEIN 5.6 gm/dL (6.4-8.2)
[2024-07-26 06:02] LABS: C-REACTIVE PROTEIN 5.84 MG/DL (0.00-0.29); MAGNESIUM 1.2 mg/dL (1.8-2.4)
[2024-07-26] MEDS ORDERED: MAGNESIUM SULFATE IN WATER 50 ML IV NR (08:00)
[2024-07-26] MEDS ORDERED: POLYETHYLENE GLYCOL 3350 17 GM BLIST.PACK PO STA (09:22)
[2024-07-26] MEDS ORDERED: MAGNESIUM HYDROXIDE 30 ML BLIST.PACK PO STA (09:22)
[2024-07-26] MEDS ORDERED: MINERAL OIL 30 ML BLIST.PACK PO STA (09:22)
[2024-07-26] MEDS ORDERED: LACTULOSE 20 G/30 ML BLIST.PACK PO STA (09:22)
[2024-07-26] MEDS ORDERED: NA PHOS,M-B/NA PHOS,DI-BA 1 BOTTLE ENEMA RECTAL NR (18:00)
[2024-07-27] VITALS (9 sets, daily range): BP systolic 135–160; BP diastolic 62–87; O2SAT 90–99
[2024-07-27] MEDS ORDERED: POLYETHYLENE GLYCOL 3350 17 GM BLIST.PACK PO SCH (09:00)
[2024-07-28] VITALS (10 sets, daily range): BP systolic 148–160; BP diastolic 69–77; O2SAT 97–100
[2024-07-28 08:15] LABS: HEMATOCRIT 31.5 % (36.0-45.00); HEMOGLOBIN 10.2 g/dL (12.0-15.00); MEAN CELL VOLUME 93.2 fL (80.00-100.00); MEAN CORPUSCULAR HEMOGLOBIN 30.3 pg (27.00-32.0); MEAN CORPUSCULAR HGB CONC 32.5 g/dl (32.0-36.0); RED BLOOD COUNT 3.38 M/uL (4.00-6.00); RED CELL DISTRIBUTION WIDTH 17.2 % (11.5-14.5)
[2024-07-28 08:22] LABS: PLATELET COUNT 84 K/uL (150-450)
[2024-07-28 09:09] LABS: ALBUMIN 1.7 gm/dL (3.4-5.0); CALCIUM 7.7 mg/dL (8.5-10.1); CREATININE SERUM 1.55 mg/dL (0.55-1.02); GFR 32.25; MAGNESIUM 1.5 mg/dL (1.8-2.4); POTASSIUM 3.53 mEq/L (3.5-5.1)
[2024-07-28 09:22] LABS: PHOSPHOROUS 1.9 mg/dL (2.5-4.9)
[2024-07-28] MEDS ORDERED: POTASSIUM PHOS,M-BASIC-D-BASIC 15 MM in 0.9 % SODIUM CHLORIDE 250 ML IV NR (11:30)
[2024-07-28] MEDS ORDERED: MAGNESIUM SULFATE IN WATER 4GM/50ML PIGGYBAG IV ONE (18:45)
[2024-07-29] VITALS (9 sets, daily range): BP systolic 149–170; BP diastolic 62–89; O2SAT 95–100
[2024-07-30] VITALS (9 sets, daily range): BP systolic 156–184; BP diastolic 60–77; O2SAT 90–100
[2024-07-30] MEDS ORDERED: LIPITOR40 M1 PO (14:46)
[2024-07-30] MEDS ORDERED: INTEGRA PLUS C1 EACH PO (14:46)
[2024-07-30] MEDS ORDERED: DILTIAZEM HCL30 MG PO (14:47)
[2024-07-30] MEDS ORDERED: NEURONTIN600 MG PO (14:48)
[2024-07-30] MEDS ORDERED: LEVOTHYROXINE50 MCG PO (14:49)
[2024-07-30] MEDS ORDERED: PREDNISONE10 MG PO (14:52)
[2024-07-31 00:10] VITALS: O2SAT 90
[2024-07-31 01:20] VITALS: BP 140/54; O2SAT 92
[2024-07-31 05:49] VITALS: O2SAT 99
[2024-07-31 07:57] VITALS: BP 143/52; O2SAT 97
[2024-07-31 09:27] VITALS: O2SAT 96
== END 2024-07-31 11:37 | disposition home or self-care (01) | DRG 871 ==
LOC: ER 17:46 → ICU 22:53 → ICU-2 22:53 → ICU 07-17 04:21 → MEDJ 07-23 02:42
PROVIDERS: General Practice; Internal Medicine; Internal Medicine Infectious Disease; Internal Medicine Nephrology; ADMIT Internal Medicine; ATTEND Internal Medicine
PROC: B24BZZZ Ultrasonography of Heart with Aorta (ICD-10-PCS; 2024-07-16)
PROC: 02HV33Z Insertion of Infusion Device into Superior Vena Cava, Percutaneous Approach (ICD-10-PCS; 2024-07-17)
PROC: 8E0ZXY6 Isolation (ICD-10-PCS; principal; 2024-07-18)
PROC: 4A12X4Z Monitoring of Cardiac Electrical Activity, External Approach (ICD-10-PCS; 2024-07-23)
DX: A41.89 Other specified sepsis (principal); I21.4 Non-ST elevation (NSTEMI) myocardial infarction; R65.21 Severe sepsis with septic shock; N18.5 Chronic kidney disease, stage 5; N39.0 Urinary tract infection, site not specified; I13.0 Hypertensive heart and chronic kidney disease with heart failure and stage 1 through stage 4 chronic kidney disease, or unspecified chronic kidney disease; I48.20 Chronic atrial fibrillation, unspecified; E27.3 Drug-induced adrenocortical insufficiency; N17.9 Acute kidney failure, unspecified; E03.9 Hypothyroidism, unspecified; E66.01 Morbid (severe) obesity due to excess calories; D69.6 Thrombocytopenia, unspecified; I25.10 Atherosclerotic heart disease of native coronary artery without angina pectoris; I50.9 Heart failure, unspecified; E11.22 Type 2 diabetes mellitus with diabetic chronic kidney disease; Z79.4 Long term (current) use of insulin; B96.1 Klebsiella pneumoniae [K. pneumoniae] as the cause of diseases classified elsewhere; I07.1 Rheumatic tricuspid insufficiency; L89.892 Pressure ulcer of other site, stage 2; E11.65 Type 2 diabetes mellitus with hyperglycemia; T38.0X5A Adverse effect of glucocorticoids and synthetic analogues, initial encounter; D63.1 Anemia in chronic kidney disease; D47.2 Monoclonal gammopathy; J44.9 Chronic obstructive pulmonary disease, unspecified

== ENCOUNTER 2024-08-12 20:26 | Inpatient (IN) | payer OTHER ==
[~2024-08-12] VITALS: Ht 152.4 cm; Wt 104.3 kg
[~2024-08-12 20:26] MED LIST changes: +DILTIAZEM HCL30 MG PO; +INTEGRA PLUS C1 EACH PO; +LEVOTHYROXINE50 MCG PO; +LIPITOR40 M1 PO; +PREDNISONE10 MG PO
[2024-08-12 21:16] LABS: HEMATOCRIT 31.7 % (36.0-45.00); HEMOGLOBIN 10.4 g/dL (12.0-15.00); MEAN CORPUSCULAR HEMOGLOBIN 30.6 pg (27.00-32.0); MEAN CORPUSCULAR HGB CONC 32.9 g/dl (32.0-36.0); RED BLOOD COUNT 3.41 M/uL (4.00-6.00); RED CELL DISTRIBUTION WIDTH 17.8 % (11.5-14.5)
[2024-08-12 21:25] LABS: ABG PO2 78.4 mmHg (80-100); BASE EXCESS 3.2 mmol/l; BICARBONATE 27.4 mmol/l (23-25); SaO2 96.2 %; Tco2 28.6 mmol/l
[2024-08-12 21:26] LABS: PLATELET COUNT 92 K/uL (150-450)
[2024-08-12 21:26] LABS: PH,URINE 6.5 (5.0-8.0); URINE APPEARANCE Clear; URINE BILIRRUBIN Negative (NEGATIVE); URINE BLOOD Negative; URINE COLOR Yellow; URINE GLUCOSE Negative (NEGATIVE); URINE KETONE Negative (NEGATIVE); URINE LEUKOCYTE Small; URINE NITRATE Negative
[2024-08-12] MEDS ORDERED: LEVALBUTEROL HCL 0.63 MG/3 ML SOLUTION IH ONE (21:27)
[2024-08-12 21:29] LABS: URINE EPITHELIAL CELLS 5.3 uL (0.0-38.8)
[2024-08-12] MEDS ORDERED: LEVALBUTEROL HCL 0.63 MG/3 ML SOLUTION IH SCH (21:30)
[2024-08-12 21:46] LABS: INR 1.13; PARTIAL THROMBOPLASTIN TIME 23.9 SECONDS (22.0-34.0); PROTHROMBIN TIME 12.2 SECONDS (9.0-11.5)
[2024-08-12 21:50] LABS: URINE BACTERIA > 9821.5 uL (0.0-1933); URINE CAST 0.14 uL (0.0-1.40); URINE PROTEIN 100 (NEGATIVE)
[2024-08-12 21:52] LABS: URINE YEAST MANY /hpf
[2024-08-12 22:13] LABS: ALBUMIN 2.1 gm/dL (3.4-5.0); BILIRUBIN TOTAL 0.57 mg/dL (0.3-1.2); CALCIUM 6.7 mg/dL (8.5-10.1); CREATININE SERUM 1.43 mg/dL (0.55-1.02); GFR 35.4; GLOBULINA 3.8 G/DL (2.4-3.5); POTASSIUM 3.71 mEq/L (3.5-5.1); TOTAL PROTEIN 5.9 gm/dL (6.4-8.2)
[2024-08-12] MEDS ORDERED: CEFTRIAXONE SODIUM 1,000 MG VIAL IV STA (23:38)
[2024-08-12 23:48] LABS: ABG pCO2 40.3 mmHg (35-45); allen test SATISFACTORY; o2 21 %; puncture site RADIAL LEFT
[2024-08-13] MEDS ORDERED: LEVALBUTEROL HCL 0.63 MG/3 ML SOLUTION IH SCH (01:00)
[2024-08-13] MEDS ORDERED: CEFTRIAXONE SODIUM 1,000 MG VIAL ONE (01:57)
[2024-08-13] MEDS ORDERED: LEVALBUTEROL HCL 0.63 MG/3 ML SOLUTION IH ONE (08:01)
[2024-08-13] MEDS ORDERED: ATORVASTATIN CALCIUM 40 MG TABLET PO SCH (11:29)
[2024-08-13] MEDS ORDERED: hydrALAZINE HCL 20 MG VIAL IV PRN (11:30)
[2024-08-13] MEDS ORDERED: DEXTROSE 50 % IN WATER 0.5 G/ML DISP.SYRIN IV PRN ×2 (11:30→18:00)
[2024-08-13] MEDS ORDERED: 0.9 % SODIUM CHLORIDE 1,000 ML IV SCH (11:30)
[2024-08-13] MEDS ORDERED: INSULIN LISPRO 1,000 UNIT/10 ML UNITS SUBCUTANEO PRN ×2 (11:30→18:00)
[2024-08-13] MEDS ORDERED: IPRATROPIUM BROMIDE 0.5 MG/2.5 ML AMPUL.NEB IH SCH (11:35)
[2024-08-13] MEDS ORDERED: FUROsemide 40 MG/4 ML VIAL IV SCH (11:36)
[2024-08-13] MEDS ORDERED: ACETAMINOPHEN 500 MG GEL..CAP PO PRN (11:45)
[2024-08-13] MEDS ORDERED: FUROsemide 20 MG/2 ML VIAL ONE (11:59)
[2024-08-13] MEDS ORDERED: PIPERACILLIN/TAZOBACTAM SODIUM 3.375 GM VIAL IV ONE (11:59)
[2024-08-13] MEDS ORDERED: PIPERACILLIN/TAZOBACTAM SODIUM 3.375 GM in 0.9 % SODIUM CHLORIDE 100 ML IV SCH (12:00)
[2024-08-13 12:39] VITALS: BP 140/78
[2024-08-13 12:52] VITALS: BP 140/78; O2SAT 98
[2024-08-13 14:34] VITALS: BP 169/70
[2024-08-13 15:11] LABS: CKMB 1.7 NG/ML (0.5-3.6); CREATININE SERUM 1.46 mg/dL (0.55-1.02); GFR 34.56; PHOSPHOROUS 3.1 mg/dL (2.5-4.9)
[2024-08-13 15:59] LABS: POTASSIUM 3.43 mEq/L (3.5-5.1)
[2024-08-13 16:08] LABS: CALCIUM 6.4 mg/dL (8.5-10.1)
[2024-08-13 16:52] VITALS: BP 160/76; O2SAT 96
[2024-08-13] MEDS ORDERED: CALCIUM GLUCONATE 100 MG/ML VIAL IV NR (19:00)
[2024-08-13 21:39] VITALS: BP 156/70; O2SAT 97
[2024-08-14 02:38] VITALS: BP 184/81; O2SAT 97
[2024-08-14] MEDS ORDERED: LEVOTHYROXINE SODIUM 75 MCG TABLET PO SCH (06:00)
[2024-08-14 07:26] LABS: HEMATOCRIT 33.2 % (36.0-45.00); HEMOGLOBIN 10.9 g/dL (12.0-15.00); MEAN CELL VOLUME 92.5 fL (80.00-100.00); MEAN CORPUSCULAR HEMOGLOBIN 30.4 pg (27.00-32.0); MEAN CORPUSCULAR HGB CONC 32.8 g/dl (32.0-36.0); RED BLOOD COUNT 3.59 M/uL (4.00-6.00); RED CELL DISTRIBUTION WIDTH 18.7 % (11.5-14.5)
[2024-08-14 07:28] LABS: PLATELET COUNT 118 K/uL (150-450)
[2024-08-14 08:55] VITALS: BP 137/51; O2SAT 96
[2024-08-14] MEDS ORDERED: FUROsemide 20 MG/2 ML VIAL IV SCH (09:00)
[2024-08-14 17:00] VITALS: BP 174/71; O2SAT 95
[2024-08-14] MEDS ORDERED: MEROPENEM 500 MG/VIAL VIAL IV SCH (17:00)
[2024-08-14] MEDS ORDERED: PREDNISONE 10 MG TABLET PO STA (17:34)
[2024-08-14] MEDS ORDERED: GENTAMICIN SULFATE 40 MG/ML VIAL IV NR (18:00)
[2024-08-14] MEDS ORDERED: DOXYCYCLINE HYCLATE 100MG IV ONE (19:46)
[2024-08-14] MEDS ORDERED: DOXYCYCLINE HYCLATE 100MG IV SCH (21:00)
[2024-08-14 22:52] LABS: ABG PH 7.458 (7.35-7.45); ABG pCO2 39.1 mmHg (35-45)
[2024-08-14 22:55] LABS: ABG PO2 41.2 mmHg (80-100); BASE EXCESS 3.1 mmol/l; SaO2 80.1 %; Tco2 28.2 mmol/l; allen test SATISFACTORY; o2 21 %; puncture site RADIAL RIGHT
[2024-08-15 03:03] VITALS: BP 141/74; O2SAT 98
[2024-08-15] MEDS ORDERED: GENTAMICIN SULFATE 40 MG/ML VIAL IV SCH (06:00)
[2024-08-15] MEDS ORDERED: INSULIN NPH HUM/REG INSULIN HM 1,000 UNIT/10 ML UNITS SUBCUTANEO SCH (08:00)
[2024-08-15] MEDS ORDERED: DOXYCYCLINE HYCLATE 100MG IV ONE ×2 (08:12→20:01)
[2024-08-15] MEDS ORDERED: PREDNISONE 10 MG TABLET PO SCH (09:00)
[2024-08-15 10:11] LABS: HEMATOCRIT 28.5 % (36.0-45.00); MEAN CELL VOLUME 92.8 fL (80.00-100.00); MEAN CORPUSCULAR HGB CONC 33.4 g/dl (32.0-36.0); RED BLOOD COUNT 3.07 M/uL (4.00-6.00); RED CELL DISTRIBUTION WIDTH 18.8 % (11.5-14.5)
[2024-08-15 10:12] LABS: HEMOGLOBIN 9.5 g/dL (12.0-15.00); MEAN CORPUSCULAR HEMOGLOBIN 30.9 pg (27.00-32.0)
[2024-08-15 10:13] LABS: PLATELET COUNT 88 K/uL (150-450)
[2024-08-15 11:29] LABS: BILIRUBIN TOTAL 0.58 mg/dL (0.3-1.2); CALCIUM 6.6 mg/dL (8.5-10.1); CREATININE SERUM 1.69 mg/dL (0.55-1.02); GENTAMYCIN PEAK 2.6 ug/ml (4.0-8.0); GFR 29.19; GLOBULINA 3.8 G/DL (2.4-3.5); PHOSPHOROUS 3.6 mg/dL (2.5-4.9); POTASSIUM 3.36 mEq/L (3.5-5.1); TOTAL PROTEIN 5.8 gm/dL (6.4-8.2)
[2024-08-15 11:38] LABS: C-REACTIVE PROTEIN 9.01 MG/DL (0.00-0.29)
[2024-08-15 11:39] LABS: MAGNESIUM 0.8 mg/dL (1.8-2.4)
[2024-08-15] MEDS ORDERED: POTASSIUM CHLORIDE/D5-0.45NACL 1,000 ML IV SCH (12:30)
[2024-08-15] MEDS ORDERED: MAGNESIUM SULFATE IN WATER 2 GM/50 ML PIGGYBAG IV NR (13:00)
[2024-08-15 13:48] VITALS: BP 132/80
[2024-08-15 18:48] VITALS: BP 187/62
[2024-08-16 04:58] VITALS: BP 145/75
[2024-08-16] MEDS ORDERED: DOXYCYCLINE HYCLATE 100MG IV ONE ×2 (08:23→20:26)
[2024-08-16 09:38] VITALS: BP 138/69; O2SAT 98
[2024-08-16] MEDS ORDERED: MAGNESIUM SULFATE IN WATER 50 ML IV NR (14:00)
[2024-08-16 18:48] VITALS: BP 197/73; O2SAT 95
[2024-08-16] MEDS ORDERED: INSULIN LISPRO 1,000 UNIT/10 ML UNITS SUBCUTANEO PRN (20:15)
[2024-08-16 21:03] LABS: ABG PH 7.439 (7.35-7.45); ABG PO2 80.2 mmHg (80-100); ABG pCO2 39.2 mmHg (35-45); BASE EXCESS 1.8 mmol/l; SaO2 96.3 %; Tco2 27.2 mmol/l; allen test SATISFACTORY; o2 21 %; puncture site RADIAL LEFT
[2024-08-16 22:00] VITALS: BP 202/70; O2SAT 98
[2024-08-16 22:22] VITALS: BP 156/66; O2SAT 98
[2024-08-17 01:31] VITALS: BP 123/65
[2024-08-17 06:34] LABS: URINE EPITHELIAL CELLS 26.4 uL (0.0-38.8); URINE RBC 2776.6 uL (0.0-20.8); URINE WBC 345.7 uL (0.0-23.2)
[2024-08-17 06:35] LABS: HEMATOCRIT 26.9 % (36.0-45.00); MEAN CELL VOLUME 92.8 fL (80.00-100.00); MEAN CORPUSCULAR HGB CONC 33.4 g/dl (32.0-36.0); RED CELL DISTRIBUTION WIDTH 18.7 % (11.5-14.5)
[2024-08-17 06:54] LABS: PLATELET COUNT 91 K/uL (150-450)
[2024-08-17 06:56] LABS: URINE BILIRRUBIN NEGATIVE (NEGATIVE); URINE BLOOD SMALL; URINE GLUCOSE NEGATIVE (NEGATIVE); URINE KETONE TRACE (NEGATIVE); URINE LEUKOCYTE NEGATIVE; URINE NITRATE NEGATIVE; URINE UROBILINOGEN 0.2 E.U./dl
[2024-08-17 07:03] LABS: ALBUMIN 1.9 gm/dL (3.4-5.0); BILIRUBIN TOTAL 0.49 mg/dL (0.3-1.2); CREATININE SERUM 1.37 mg/dL (0.55-1.02); GFR 37.19; GLOBULINA 3.3 G/DL (2.4-3.5); POTASSIUM 3.08 mEq/L (3.5-5.1); TOTAL PROTEIN 5.2 gm/dL (6.4-8.2)
[2024-08-17 07:04] LABS: URINE APPEARANCE CLOUDY; URINE COLOR YELLOW; URINE PROTEIN 100 (NEGATIVE)
[2024-08-17 07:05] LABS: URINE CAST 9.42 uL (0.0-1.40)
[2024-08-17 07:42] LABS: C-REACTIVE PROTEIN 3.6 MG/DL (0.00-0.29)
[2024-08-17 07:43] LABS: CALCIUM 6.2 mg/dL (8.5-10.1); PHOSPHOROUS 1.8 mg/dL (2.5-4.9)
[2024-08-17 07:44] LABS: MAGNESIUM 1.2 mg/dL (1.8-2.4)
[2024-08-17] MEDS ORDERED: DOXYCYCLINE HYCLATE 100MG IV ONE (08:18)
[2024-08-17] MEDS ORDERED: CALCIUM GLUCONATE 100 MG/ML VIAL IV NR (10:30)
[2024-08-17] MEDS ORDERED: POTASSIUM PHOS,M-BASIC-D-BASIC 3 MM/ML VIAL IV NR (10:30)
[2024-08-17] MEDS ORDERED: MAGNESIUM SULFATE IN WATER 2 GM/50 ML PIGGYBAG IV NR (10:30)
[2024-08-17 11:10] VITALS: BP 142/74
[2024-08-17] MEDS ORDERED: POTASSIUM BICARBONATE/CIT AC 25 MEQ TABLET.EFF PO SCH (13:00)
[2024-08-17 17:29] VITALS: BP 136/58; O2SAT 99
[2024-08-17] MEDS ORDERED: GENTAMICIN SULFATE 40 MG/ML VIAL IV SCH (18:00)
[2024-08-17] MEDS ORDERED: POTASSIUM CHLORIDE IN WATER 40 MEQ/100 ML PIGGYBAG IV NR (18:32)
[2024-08-18 03:10] VITALS: BP 123/73; O2SAT 97
[2024-08-18 07:23] LABS: HEMATOCRIT 25.9 % (36.0-45.00); MEAN CELL VOLUME 92.3 fL (80.00-100.00); MEAN CORPUSCULAR HGB CONC 33.9 g/dl (32.0-36.0); RED CELL DISTRIBUTION WIDTH 18.6 % (11.5-14.5)
[2024-08-18 07:47] LABS: MEAN CORPUSCULAR HEMOGLOBIN 31.4 pg (27.00-32.0)
[2024-08-18 07:48] LABS: HEMOGLOBIN 8.8 g/dL (12.0-15.00); PLATELET COUNT 94 K/uL (150-450)
[2024-08-18 08:00] VITALS: BP 146/52
[2024-08-18 08:04] LABS: ALBUMIN 2.1 gm/dL (3.4-5.0); BILIRUBIN TOTAL 0.55 mg/dL (0.3-1.2); CALCIUM 6.7 mg/dL (8.5-10.1); CREATININE SERUM 1.46 mg/dL (0.55-1.02); GFR 34.56; GLOBULINA 3.3 G/DL (2.4-3.5); PHOSPHOROUS 2.7 mg/dL (2.5-4.9); POTASSIUM 4.05 mEq/L (3.5-5.1); TOTAL PROTEIN 5.4 gm/dL (6.4-8.2)
[2024-08-18 08:20] LABS: MAGNESIUM 1.4 mg/dL (1.8-2.4)
[2024-08-18] MEDS ORDERED: MAGNESIUM CHLORIDE 70 MG TABLET.DR PO STA (09:15)
[2024-08-18] MEDS ORDERED: DOXYCYCLINE HYCLATE 100MG IV ONE (09:39)
[2024-08-18] MEDS ORDERED: MAGNESIUM CHLORIDE 70 MG TABLET.DR PO SCH (17:00)
[2024-08-18 17:07] VITALS: BP 165/59
[2024-08-18 21:57] LABS: URINE APPEARANCE Cloudy; URINE BILIRRUBIN Negative (NEGATIVE); URINE BLOOD Trace; URINE COLOR Yellow; URINE GLUCOSE Negative (NEGATIVE); URINE KETONE Negative (NEGATIVE); URINE LEUKOCYTE Small; URINE NITRATE Negative; URINE UROBILINOGEN 0.2 E.U./dl
[2024-08-18 22:01] LABS: URINE BACTERIA 139.5 uL (0.0-1933); URINE RBC 7916.2 uL (0.0-20.8); URINE WBC 174.7 uL (0.0-23.2)
[2024-08-18 22:32] LABS: URINE CAST 0.79 uL (0.0-1.40); URINE PROTEIN 100 (NEGATIVE)
[2024-08-18 22:35] LABS: URINE YEAST MANY /hpf
[2024-08-19 01:44] VITALS: BP 112/64; O2SAT 92
[2024-08-19 08:00] VITALS: BP 126/57; O2SAT 100
[2024-08-19 17:26] VITALS: BP 155/72
[2024-08-19] MEDS ORDERED: FLUCONAZOLE IN NACL,ISO-OSM 50 ML IV SCH (23:01)
[2024-08-20 00:49] VITALS: BP 150/60
[2024-08-20] MEDS ORDERED: INSULIN NPH HUM/REG INSULIN HM 1,000 UNIT/10 ML UNITS SUBCUTANEO SCH (09:00)
[2024-08-20 10:07] VITALS: BP 144/50; O2SAT 98
[2024-08-20 16:46] VITALS: BP 170/73
[2024-08-20] MEDS ORDERED: FLUCONAZOLE IN NACL,ISO-OSM 2 MG/ML ML IV SCH (21:00)
[2024-08-21 03:05] VITALS: BP 174/67; O2SAT 98
[2024-08-21 08:47] VITALS: BP 151/74; O2SAT 96
[2024-08-21] MEDS ORDERED: IPRATROPIU0.2 MG/1 M IH (09:51)
[2024-08-21] MEDS ORDERED: Xopenex 0.63 MG/3 ML IH (09:52)
[2024-08-21] MEDS ORDERED: INTEGRA PLUS C1 EACH PO (09:53)
[2024-08-21] MEDS ORDERED: LIPITOR40 M1 PO (09:54)
[2024-08-21] MEDS ORDERED: DILTIAZEM HCL30 MG PO (09:54)
[2024-08-21] MEDS ORDERED: CARDURA8 MG PO (09:55)
[2024-08-21] MEDS ORDERED: COZAAR100 MG PO (09:56)
[2024-08-21] MEDS ORDERED: MAGNESIUM CHLOR70 MG PO (09:57)
[2024-08-21] MEDS ORDERED: TUSNEL DIABETI118 ML PO (09:57)
[2024-08-21] MEDS ORDERED: SINGULAIR10 MG PO (09:57)
[2024-08-21] MEDS ORDERED: INSULIN LI100 UNIT/1 SUBCUTANEO (09:58)
[2024-08-21] MEDS ORDERED: PREDNISONE10 MG PO (09:59)
[2024-08-21] MEDS ORDERED: LEVOTHYROXINE50 MCG PO (09:59)
[2024-08-21] MEDS ORDERED: HUMULIN 70100 UNIT/2 SUBCUTANEO (09:59)
[2024-08-21] MEDS ORDERED: VITAMIN D310 MCG/1 M PO (10:01)
[2024-08-21] MEDS ORDERED: FOLIC ACID1 MG PO (10:01)
[2024-08-21] MEDS ORDERED: ZYLOPRIM100 M1 PO (10:02)
[2024-08-21] MEDS ORDERED: NEURONTIN600 MG PO (10:03)
[2024-08-21] MEDS ORDERED: HUMULIN 70100 UNIT/1 SUBCUTANEO (10:05)
[2024-08-21] MEDS ORDERED: MONODOX100 MG PO (10:09)
[2024-08-21] MEDS ORDERED: FLUCONAZOLE100 MG PO (10:11)
== END 2024-08-21 14:22 | disposition home or self-care (01) | DRG 872 ==
LOC: ER 20:26 → MEDJ 08-13 12:37 → MEDI 08-13 12:37 → MEDJ 08-13 20:02
PROVIDERS: Emergency Medicine; General Practice; Internal Medicine; Internal Medicine Infectious Disease; ADMIT Internal Medicine; ATTEND Internal Medicine
PROC: BB24ZZZ Computerized Tomography (CT Scan) of Bilateral Lungs (ICD-10-PCS; principal; 2024-08-13)
PROC: 8E0ZXY6 Isolation (ICD-10-PCS; 2024-08-14)
PROC: 3E0F7GC Introduction of Other Therapeutic Substance into Respiratory Tract, Via Natural or Artificial Opening (ICD-10-PCS; 2024-08-15)
PROC: 02HV33Z Insertion of Infusion Device into Superior Vena Cava, Percutaneous Approach (ICD-10-PCS; 2024-08-17)
DX: A41.9 Sepsis, unspecified organism (principal); N39.0 Urinary tract infection, site not specified; N17.8 Other acute kidney failure; J44.1 Chronic obstructive pulmonary disease with (acute) exacerbation; E27.49 Other adrenocortical insufficiency; E87.0 Hyperosmolality and hypernatremia; R09.02 Hypoxemia; I11.0 Hypertensive heart disease with heart failure; I50.9 Heart failure, unspecified; D69.6 Thrombocytopenia, unspecified; E11.65 Type 2 diabetes mellitus with hyperglycemia; Z79.4 Long term (current) use of insulin; E03.8 Other specified hypothyroidism; E83.51 Hypocalcemia; Z79.52 Long term (current) use of systemic steroids; D64.9 Anemia, unspecified; E86.0 Dehydration; E87.6 Hypokalemia

== ENCOUNTER 2024-10-09 21:33 | Inpatient (IN) | payer OTHER ==
[~2024-10-09] VITALS: Ht 162.6 cm; Wt 99.8 kg
[~2024-10-09 21:33] MED LIST changes: +COZAAR100 MG PO; +FLUCONAZOLE100 MG PO; +HUMULIN 70100 UNIT/1 SUBCUTANEO; +HUMULIN 70100 UNIT/2 SUBCUTANEO; +INSULIN LI100 UNIT/1 SUBCUTANEO; +IPRATROPIU0.2 MG/1 M IH; +MAGNESIUM CHLOR70 MG PO; +MONODOX100 MG PO; +VITAMIN D310 MCG/1 M PO; +Xopenex 0.63 MG/3 ML IH; +ZYLOPRIM100 M1 PO
[2024-10-09] MEDS ORDERED: 0.9 % SODIUM CHLORIDE 1,000 ML IV SCH (22:45)
[2024-10-10 00:54] LABS: BASO % 0.7 % (0.1-1.2); EOS # 0.08 (0.04-0.54); EOS % 1.4 % (0.7-7.0); LYMPH % 17.9 % (19.3-53.1); MEAN CORPUSCULAR HEMOGLOBIN 32.8 pg (25.6-32.2); MONO # 0.94 (0.24-0.82); NEUT % 62.5 % (34.0-71.1); RED BLOOD COUNT 2.44 M/uL (3.93-5.22); RED CELL DISTRIBUTION WIDTH 14.2 % (11.6-14.4)
[2024-10-10 00:56] LABS: PH,URINE 5.5 (5.0-8.0); URINE APPEARANCE Clear; URINE BILIRRUBIN Negative (NEGATIVE); URINE BLOOD Negative; URINE COLOR Yellow; URINE GLUCOSE Negative (NEGATIVE); URINE KETONE Negative (NEGATIVE); URINE LEUKOCYTE Trace; URINE NITRATE Negative; URINE PROTEIN 30 (NEGATIVE); URINE UROBILINOGEN 0.2 E.U./dl
[2024-10-10 01:00] LABS: URINE BACTERIA 1265.5 uL (0.0-1933); URINE EPITHELIAL CELLS 50.9 uL (0.0-38.8); URINE RBC 5.3 uL (0.0-20.8); URINE WBC 35.3 uL (0.0-23.2)
[2024-10-10 01:03] LABS: HEMATOCRIT 24.4 % (34.1-44.9); MONO % 16.8 % (4.7-12.5)
[2024-10-10 01:04] LABS: PLATELET COUNT 102 K/uL (163-369)
[2024-10-10 01:21] LABS: INR 1.13; PARTIAL THROMBOPLASTIN TIME 28.4 SECONDS (22.0-34.0); PROTHROMBIN TIME 12.2 SECONDS (9.0-11.5)
[2024-10-10 01:23] LABS: CALCIUM 7.3 mg/dL (8.5-10.1); CREATININE SERUM 2.28 mg/dL (0.55-1.02); GFR 20.61; POTASSIUM 3.49 mEq/L (3.5-5.1)
[2024-10-10 01:29] LABS: URINE CAST 0.29 uL (0.0-1.40)
[2024-10-10 01:46] LABS: INFLUENZA A AG NEGATIVE (NEGATIVE); INFLUENZA B AG NEGATIVE (NEGATIVE)
[2024-10-10 01:47] LABS: COVID-19 AG POSITIVE (NEGATIVE)
[2024-10-10] MEDS ORDERED: LEVALBUTEROL HCL 0.63 MG/3 ML SOLUTION IH STA (06:44)
[2024-10-10] MEDS ORDERED: LEVALBUTEROL HCL 0.63 MG/3 ML SOLUTION IH SCH (08:00)
[2024-10-10] MEDS ORDERED: LEVALBUTEROL HCL 0.63 MG/3 ML SOLUTION IH ONE (10:30)
[2024-10-10 10:50] LABS: ABG PH 7.403 (7.35-7.45); ABG PO2 76.6 mmHg (80-100); ABG pCO2 41.2 mmHg (35-45); BASE EXCESS 0.3 mmol/l; BICARBONATE 25.1 mmol/l (23-25); SaO2 95.2 %
[2024-10-10 10:51] LABS: Tco2 26.4 mmol/l; mode NASAL CANNULA; puncture site RADIAL RIGHT
[2024-10-10 10:52] LABS: o2 28 %
[2024-10-10] MEDS ORDERED: AZITHROMYCIN 500 MG VIAL IV SCH (12:33)
[2024-10-10] MEDS ORDERED: CEFTRIAXONE SODIUM 1,000 MG VIAL IV SCH (12:33)
[2024-10-10] MEDS ORDERED: METHYLPREDNISOLONE SOD SUCC 40 MG VIAL IV SCH (12:34)
[2024-10-10] MEDS ORDERED: FUROsemide 20 MG/2 ML VIAL IV SCH (12:45)
[2024-10-10] MEDS ORDERED: DEXTROSE 50 % IN WATER 0.5 G/ML DISP.SYRIN IV PRN (12:45)
[2024-10-10] MEDS ORDERED: INSULIN LISPRO 1,000 UNIT/10 ML UNITS SUBCUTANEO PRN (12:45)
[2024-10-10] MEDS ORDERED: GUAIFEN/DEXTROMETHORPHAN/PE 10 ML BLIST.PACK PO SCH (13:00)
[2024-10-10] MEDS ORDERED: BENZONATATE 100 MG CAPSULE PO SCH (13:00)
[2024-10-10] MEDS ORDERED: IPRATROPIUM BROMIDE 0.5 MG/2.5 ML AMPUL.NEB IH SCH (13:00)
[2024-10-10] MEDS ORDERED: LEVALBUTEROL HCL 1.25 MG/3 ML SOLUTION IH SCH (13:00)
[2024-10-10] MEDS ORDERED: DILTIAZEM HCL 30 MG TABLET PO SCH (13:00)
[2024-10-10] MEDS ORDERED: BENZONATATE 100 MG CAPSULE PO ONE (14:33)
[2024-10-10] MEDS ORDERED: METHYLPREDNISOLONE SOD SUCC 40 MG VIAL ONE (14:34)
[2024-10-10] MEDS ORDERED: FUROsemide 20 MG/2 ML VIAL ONE (14:34)
[2024-10-10] MEDS ORDERED: CEFTRIAXONE SODIUM 1,000 MG VIAL ONE (14:34)
[2024-10-10] MEDS ORDERED: DILTIAZEM HCL 30 MG TABLET PO ONE (14:34)
[2024-10-10] MEDS ORDERED: AZITHROMYCIN 500 MG VIAL IV ONE (14:35)
[2024-10-10] MEDS ORDERED: GUAIFENESIN/DEXTROMETHORPHAN 100MG/10ML BLIST.PACK PO ONE (14:35)
[2024-10-10] MEDS ORDERED: FAMOtidine 20 MG TABLET PO SCH (17:00)
[2024-10-10] MEDS ORDERED: MONTELUKAST SODIUM 10 MG TABLET PO SCH (17:00)
[2024-10-10 17:51] VITALS: BP 150/60; O2SAT 98
[2024-10-10] MEDS ORDERED: FLUTICASONE PROPIONATE 50 MCG SPRAY NASAL SCH (21:00)
[2024-10-10] MEDS ORDERED: LORATADINE 10 MG TABLET PO SCH (21:00)
[2024-10-11 03:40] VITALS: BP 151/72
[2024-10-11] MEDS ORDERED: LEVOTHYROXINE SODIUM 75 MCG TABLET PO SCH (06:00)
[2024-10-11 08:41] VITALS: BP 150/65; O2SAT 99
[2024-10-11] MEDS ORDERED: Cyanocobalamin/Mecobalamin 1 TAB.SL SL SCH (09:00)
[2024-10-11] MEDS ORDERED: ATORVASTATIN CALCIUM 40 MG TABLET PO SCH (09:00)
[2024-10-11] MEDS ORDERED: SOD FERRIC GLUC COMPLX/SUCROSE 62.5 MG in 0.9 % SODIUM CHLORIDE 50 ML IV SCH (09:00)
[2024-10-11] MEDS ORDERED: LOSARTAN POTASSIUM 100 MG TABLET PO SCH (09:00)
[2024-10-11] MEDS ORDERED: DOXAZOSIN MESYLATE 8 MG TABLET PO SCH (09:00)
[2024-10-11] MEDS ORDERED: FOLIC ACID 1 MG TABLET PO SCH (09:00)
[2024-10-11] MEDS ORDERED: CYANOCOBALAMIN (VITAMIN B-12) 1,000 MCG TABLET PO SCH (09:00)
[2024-10-11] MEDS ORDERED: ENOXAPARIN SODIUM 30 MG/0.3 ML SYRINGE SUBCUTANEO SCH (09:00)
[2024-10-11] MEDS ORDERED: AZITHROMYCIN 500 MG VIAL IV ONE (09:48)
[2024-10-11 10:55] LABS: FOLIC ACID > 20.00 ng/ml (4.78-20)
[2024-10-11 12:57] LABS: ALBUMIN 2.4 gm/dL (3.4-5.0); BILIRUBIN TOTAL 0.7 mg/dL (0.3-1.2); CALCIUM 6.9 mg/dL (8.5-10.1); CREATININE SERUM 2.41 mg/dL (0.55-1.02); GFR 19.33; GLOBULINA 3.5 G/DL (2.4-3.5); POTASSIUM 3.91 mEq/L (3.5-5.1); TOTAL PROTEIN 5.9 gm/dL (6.4-8.2)
[2024-10-11 13:05] LABS: C-REACTIVE PROTEIN 6.7 MG/DL (0.00-0.29); FERRITIN 482.3 NG/ML (8-252)
[2024-10-11] MEDS ORDERED: PANTOPRAZOLE SODIUM 40 MG/VIAL VIAL IV SCH (14:01)
[2024-10-11] MEDS ORDERED: VANCOMYCIN HCL 5 MG/ML REDILUIDO IV SCH (18:15)
[2024-10-11 18:49] VITALS: BP 161/77; O2SAT 97
[2024-10-12] VITALS: BP 158/55; O2SAT 97
[2024-10-12] MEDS ORDERED: INSULIN GLARGINE,HUM.REC.ANLOG 1,000 UNITS/10 ML UNITS SUBCUTANEO STA (00:14)
[2024-10-12 07:16] LABS: PH,URINE 5.5 (5.0-8.0); URINE APPEARANCE Cloudy; URINE BILIRRUBIN Negative (NEGATIVE); URINE BLOOD Trace; URINE COLOR Yellow; URINE KETONE Negative (NEGATIVE); URINE LEUKOCYTE Trace; URINE NITRATE Negative; URINE UROBILINOGEN 0.2 E.U./dl
[2024-10-12 07:20] LABS: URINE BACTERIA 102.8 uL (0.0-1933); URINE EPITHELIAL CELLS 96.1 uL (0.0-38.8); URINE WBC 119.8 uL (0.0-23.2)
[2024-10-12 07:25] LABS: BASO % 0.2 % (0.1-1.2); EOS # 0.01 (0.04-0.54); EOS % 0.1 % (0.7-7.0); HEMATOCRIT 30.5 % (34.1-44.9); HEMOGLOBIN 10.4 g/dL (11.2-15.7); LYMPH # 0.88 (1.18-3.74); LYMPH % 7.3 % (19.3-53.1); MEAN CORPUSCULAR HEMOGLOBIN 31.8 pg (25.6-32.2); MONO # 0.72 (0.24-0.82); NEUT # 10.33 (1.56-6.13); NEUT % 85.2 % (34.0-71.1); RED BLOOD COUNT 3.27 M/uL (3.93-5.22)
[2024-10-12 07:33] LABS: URINE CAST 0.14 uL (0.0-1.40); URINE GLUCOSE >=1000 MG/DL (NEGATIVE); URINE PROTEIN 100 (NEGATIVE); URINE YEAST MANY /hpf
[2024-10-12 07:42] LABS: PLATELET COUNT 116 K/uL (163-369); RED CELL DISTRIBUTION WIDTH 17.4 % (11.6-14.4)
[2024-10-12 07:57] VITALS: BP 150/82; O2SAT 98
[2024-10-12] MEDS ORDERED: AZITHROMYCIN 500 MG VIAL IV ONE (08:53)
[2024-10-12] MEDS ORDERED: LEVALBUTEROL HCL 1.25 MG/3 ML SOLUTION IH SCH (12:00)
[2024-10-12] MEDS ORDERED: IPRATROPIUM BROMIDE 0.5 MG/2.5 ML AMPUL.NEB IH SCH (12:00)
[2024-10-12] MEDS ORDERED: INSULIN GLARGINE,HUM.REC.ANLOG 1,000 UNITS/10 ML UNITS SUBCUTANEO SCH (17:00)
[2024-10-12 17:52] VITALS: BP 136/76; O2SAT 95
[2024-10-13 02:54] VITALS: BP 119/50; O2SAT 97
[2024-10-13] MEDS ORDERED: AZITHROMYCIN 500 MG VIAL IV ONE (07:53)
[2024-10-13 07:58] VITALS: BP 180/75
[2024-10-13] MEDS ORDERED: ENOXAPARIN SODIUM 80 MG/0.8 ML SYRINGE SUBCUTANEO SCH (09:00)
[2024-10-13 12:08] LABS: BASO % 0.1 % (0.1-1.2); HEMATOCRIT 29.7 % (34.1-44.9); LYMPH # 0.85 (1.18-3.74); LYMPH % 7.8 % (19.3-53.1); MEAN CORPUSCULAR HEMOGLOBIN 30.8 pg (25.6-32.2); MONO # 0.58 (0.24-0.82); MONO % 5.3 % (4.7-12.5); NEUT # 9.24 (1.56-6.13); NEUT % 84.9 % (34.0-71.1); RED BLOOD COUNT 3.25 M/uL (3.93-5.22)
[2024-10-13 12:32] LABS: PLATELET COUNT 98 K/uL (163-369)
[2024-10-13 12:37] LABS: ALBUMIN 2.6 gm/dL (3.4-5.0); BILIRUBIN TOTAL 0.43 mg/dL (0.3-1.2); CREATININE SERUM 2.02 mg/dL (0.55-1.02); GFR 23.7; GLOBULINA 3.4 G/DL (2.4-3.5); PHOSPHOROUS 2.7 mg/dL (2.5-4.9); POTASSIUM 3.19 mEq/L (3.5-5.1)
[2024-10-13 12:52] LABS: CALCIUM 6.3 mg/dL (8.5-10.1); MAGNESIUM 0.7 mg/dL (1.8-2.4)
[2024-10-13 12:53] LABS: C-REACTIVE PROTEIN 1.94 MG/DL (0.00-0.29); FERRITIN 681.8 NG/ML (8-252)
[2024-10-13] MEDS ORDERED: CALCIUM CARBONATE/VITAMIN D3 1 TAB TABLET PO SCH (13:00)
[2024-10-13] MEDS ORDERED: MAGNESIUM SULFATE IN WATER 50 ML IV NR (13:30)
[2024-10-13 18:16] VITALS: BP 148/46; O2SAT 97
[2024-10-14] MEDS ORDERED: INSULIN GLARGINE,HUM.REC.ANLOG 1,000 UNITS/10 ML UNITS SUBCUTANEO STA (01:31)
[2024-10-14 01:39] VITALS: BP 150/57; O2SAT 98
[2024-10-14] MEDS ORDERED: LEVOTHYROXINE SODIUM 100 MCG TABLET PO SCH (06:00)
[2024-10-14] MEDS ORDERED: AZITHROMYCIN 500 MG VIAL IV ONE (07:49)
[2024-10-14] MEDS ORDERED: POTASSIUM CHLORIDE 20MEQ/100ML H2O PB IV NR (10:00)
[2024-10-14 17:00] VITALS: BP 167/73; O2SAT 95
[2024-10-14] MEDS ORDERED: HYDROCODONE/CHLORPHEN P-STIREX 5 ML ML PO SCH (21:00)
[2024-10-15] VITALS (8 sets, daily range): BP systolic 144–178; BP diastolic 76–98; O2SAT 95–100
[2024-10-15] MEDS ORDERED: AZITHROMYCIN 500 MG VIAL IV ONE (07:56)
[2024-10-15] MEDS ORDERED: INSULIN GLARGINE,HUM.REC.ANLOG 1,000 UNITS/10 ML UNITS SUBCUTANEO SCH (09:00)
[2024-10-15 10:57] LABS: C-REACTIVE PROTEIN 0.72 MG/DL (0.00-0.29); FERRITIN 687.3 NG/ML (8-252)
[2024-10-15] MEDS ORDERED: LEVALBUTEROL HCL 1.25 MG/3 ML SOLUTION IH SCH (13:00)
[2024-10-15] MEDS ORDERED: IPRATROPIUM BROMIDE 0.5 MG/2.5 ML AMPUL.NEB IH SCH (13:00)
[2024-10-15] MEDS ORDERED: LINEZOLID 600 MG TABLET PO SCH (17:00)
[2024-10-16] VITALS (7 sets, daily range): BP systolic 138–175; BP diastolic 63–78; O2SAT 94–100
[2024-10-16 01:18] LABS: PH,URINE 5.5 (5.0-8.0); URINE APPEARANCE Clear; URINE BILIRRUBIN Negative (NEGATIVE); URINE BLOOD Small; URINE COLOR Yellow; URINE KETONE Negative (NEGATIVE); URINE LEUKOCYTE Negative; URINE NITRATE Negative; URINE UROBILINOGEN 0.2 E.U./dl
[2024-10-16 01:19] LABS: URINE BACTERIA 34.2 uL (0.0-1933); URINE CAST 1.76 uL (0.0-1.40); URINE EPITHELIAL CELLS 13.2 uL (0.0-38.8); URINE RBC 196.7 uL (0.0-20.8); URINE WBC 38.9 uL (0.0-23.2)
[2024-10-16 02:20] LABS: URINE GLUCOSE >=1000 MG/DL (NEGATIVE); URINE PROTEIN 300 (NEGATIVE); URINE YEAST MANY /hpf
[2024-10-16] MEDS ORDERED: INSULIN LISPRO 1,000 UNIT/10 ML UNITS SUBCUTANEO SCH (08:00)
[2024-10-16] MEDS ORDERED: INSULIN GLARGINE,HUM.REC.ANLOG 1,000 UNITS/10 ML UNITS SUBCUTANEO SCH (09:00)
[2024-10-16 09:37] LABS: BASO % 0.2 % (0.1-1.2); HEMATOCRIT 27.6 % (34.1-44.9); HEMOGLOBIN 9.1 g/dL (11.2-15.7); LYMPH # 0.46 (1.18-3.74); LYMPH % 4.6 % (19.3-53.1); MEAN CORPUSCULAR HEMOGLOBIN 30.7 pg (25.6-32.2); MONO # 0.81 (0.24-0.82); MONO % 8.1 % (4.7-12.5); NEUT # 8.08 (1.56-6.13); NEUT % 81.2 % (34.0-71.1); RED BLOOD COUNT 2.96 M/uL (3.93-5.22)
[2024-10-16 10:11] LABS: PLATELET COUNT 85 K/uL (163-369)
[2024-10-16 10:45] LABS: ALBUMIN 2.6 gm/dL (3.4-5.0); BILIRUBIN TOTAL 0.29 mg/dL (0.3-1.2); CREATININE SERUM 2.05 mg/dL (0.55-1.02); GFR 23.3; GLOBULINA 3.1 G/DL (2.4-3.5); POTASSIUM 3.33 mEq/L (3.5-5.1); TOTAL PROTEIN 5.7 gm/dL (6.4-8.2)
[2024-10-16 11:08] LABS: C-REACTIVE PROTEIN 0.51 MG/DL (0.00-0.29); CALCIUM 5.9 mg/dL (8.5-10.1); PHOSPHOROUS 1.4 mg/dL (2.5-4.9)
[2024-10-16] MEDS ORDERED: NAPH,MB-DB/K PH,MBDB 1 PKT PACKET PO SCH (13:00)
[2024-10-16] MEDS ORDERED: MAGNESIUM SULFATE IN WATER 4 GM/100 ML PIGGYBACK IV SCH (13:00)
[2024-10-16] MEDS ORDERED: DILTIAZEM HCL 30 MG TABLET PO SCH (13:38)
[2024-10-16] MEDS ORDERED: POTASSIUM PHOS,M-BASIC-D-BASIC 3 MM/ML VIAL IV NR (18:00)
[2024-10-16] MEDS ORDERED: METHYLPREDNISOLONE SOD SUCC 40 MG VIAL IV SCH (20:00)
[2024-10-17] VITALS (7 sets, daily range): BP systolic 138–184; BP diastolic 58–74; O2SAT 97–99
[2024-10-17 06:47] LABS: BASO % 0.2 % (0.1-1.2); HEMATOCRIT 27.8 % (34.1-44.9); LYMPH # 0.51 (1.18-3.74); LYMPH % 4.7 % (19.3-53.1); MEAN CORPUSCULAR HEMOGLOBIN 30.3 pg (25.6-32.2); MONO # 0.57 (0.24-0.82); MONO % 5.3 % (4.7-12.5); NEUT # 9.06 (1.56-6.13); NEUT % 84.2 % (34.0-71.1); RED BLOOD COUNT 2.97 M/uL (3.93-5.22); RED CELL DISTRIBUTION WIDTH 16.1 % (11.6-14.4)
[2024-10-17 07:31] LABS: PLATELET COUNT 80 K/uL (163-369)
[2024-10-17 13:59] LABS: ABG PH 7.367 (7.35-7.45); ABG PO2 97.2 mmHg (80-100); ABG pCO2 35.5 mmHg (35-45); BASE EXCESS -4.6 mmol/l; SaO2 97.1 %
[2024-10-17 14:00] LABS: allen test NO SATISFACTORY; mode ROOM AIR; o2 21 %; puncture site RADIAL LEFT
[2024-10-17 17:36] LABS: ALBUMIN 2.6 gm/dL (3.4-5.0); BILIRUBIN TOTAL 0.41 mg/dL (0.3-1.2); CREATININE SERUM 2.04 mg/dL (0.55-1.02); GFR 23.43; GLOBULINA 2.9 G/DL (2.4-3.5); POTASSIUM 3.33 mEq/L (3.5-5.1); TOTAL PROTEIN 5.5 gm/dL (6.4-8.2)
[2024-10-17 17:55] LABS: CALCIUM 5.9 mg/dL (8.5-10.1)
[2024-10-17] MEDS ORDERED: CALCIUM GLUCONATE 100 MG/ML VIAL IV NR (18:15)
[2024-10-18 00:17] VITALS: O2SAT 100
[2024-10-18 02:09] VITALS: BP 131/57; O2SAT 98
[2024-10-18 03:17] VITALS: O2SAT 100
[2024-10-18 09:00] VITALS: BP 158/73; O2SAT 100; O2SAT 95
[2024-10-18 13:21] LABS: BASO % 0.2 % (0.1-1.2); LYMPH # 0.61 (1.18-3.74); LYMPH % 4.7 % (19.3-53.1); MEAN CORPUSCULAR HEMOGLOBIN 30.3 pg (25.6-32.2); MONO # 0.81 (0.24-0.82); MONO % 6.3 % (4.7-12.5); NEUT # 10.38 (1.56-6.13); NEUT % 80.6 % (34.0-71.1); RED BLOOD COUNT 2.94 M/uL (3.93-5.22); RED CELL DISTRIBUTION WIDTH 16.5 % (11.6-14.4)
[2024-10-18 13:46] LABS: HEMOGLOBIN 8.9 g/dL (11.2-15.7); PLATELET COUNT 78 K/uL (163-369)
[2024-10-18 14:13] LABS: ALBUMIN 2.6 gm/dL (3.4-5.0); BILIRUBIN TOTAL 0.44 mg/dL (0.3-1.2); CREATININE SERUM 2.07 mg/dL (0.55-1.02); GFR 23.04; GLOBULINA 2.9 G/DL (2.4-3.5); MAGNESIUM 1.7 mg/dL (1.8-2.4); POTASSIUM 3.57 mEq/L (3.5-5.1); TOTAL PROTEIN 5.5 gm/dL (6.4-8.2)
[2024-10-18] MEDS ORDERED: SODIUM CHLORIDE 0.45 % 1,000 ML IV SCH (15:45)
[2024-10-18 16:30] VITALS: BP 145/71; O2SAT 100
[2024-10-18 21:32] VITALS: O2SAT 98
[2024-10-19] VITALS (8 sets, daily range): BP systolic 146–187; BP diastolic 72–80; O2SAT 96–100
[2024-10-19 14:49] LABS: BASO % 0.2 % (0.1-1.2); HEMATOCRIT 27.5 % (34.1-44.9); LYMPH # 0.48 (1.18-3.74); LYMPH % 3.7 % (19.3-53.1); MEAN CORPUSCULAR HEMOGLOBIN 30.7 pg (25.6-32.2); MONO # 0.76 (0.24-0.82); MONO % 5.8 % (4.7-12.5); NEUT % 81.5 % (34.0-71.1); RED CELL DISTRIBUTION WIDTH 16.3 % (11.6-14.4)
[2024-10-19 14:52] LABS: HEMOGLOBIN 8.9 g/dL (11.2-15.7)
[2024-10-19 14:53] LABS: PLATELET COUNT 74 K/uL (163-369)
[2024-10-19 15:41] LABS: CREATININE SERUM 2.37 mg/dL (0.55-1.02); GFR 19.71; MAGNESIUM 1.5 mg/dL (1.8-2.4); PHOSPHOROUS 3.4 mg/dL (2.5-4.9); POTASSIUM 3.42 mEq/L (3.5-5.1)
[2024-10-19 17:09] LABS: CALCIUM 5.8 mg/dL (8.5-10.1)
[2024-10-19] MEDS ORDERED: METHYLPREDNISOLONE SOD SUCC 40 MG VIAL IV SCH (20:00)
[2024-10-20 01:00] VITALS: O2SAT 100
[2024-10-20 02:06] VITALS: BP 137/79; O2SAT 99
[2024-10-20 09:07] LABS: ALBUMIN 2.5 gm/dL (3.4-5.0); BILIRUBIN TOTAL 0.43 mg/dL (0.3-1.2); CREATININE SERUM 2.03 mg/dL (0.55-1.02); GFR 23.56; GLOBULINA 2.7 G/DL (2.4-3.5); POTASSIUM 3.1 mEq/L (3.5-5.1); TOTAL PROTEIN 5.2 gm/dL (6.4-8.2)
[2024-10-20 09:40] VITALS: BP 153/61; O2SAT 96
[2024-10-20] MEDS ORDERED: DEXTROSE 5 %-0.45 % SOD CHLORD 1,000 ML IV SCH (15:45)
[2024-10-20 16:12] VITALS: O2SAT 90
[2024-10-20 17:50] VITALS: BP 157/79
[2024-10-20 20:18] VITALS: O2SAT 96
[2024-10-20] MEDS ORDERED: METHYLPREDNISOLONE SOD SUCC 40 MG VIAL IV SCH (21:00)
[2024-10-21] VITALS (7 sets, daily range): BP systolic 127–160; BP diastolic 66–80; O2SAT 95–99
[2024-10-21 12:17] LABS: ABG PH 7.405 (7.35-7.45); ABG PO2 125.3 mmHg (80-100); BASE EXCESS 1.3 mmol/l; BICARBONATE 26.3 mmol/l (23-25); SaO2 98.8 %; Tco2 27.6 mmol/l
[2024-10-21] MEDS ORDERED: METHYLPREDNISOLONE SOD SUCC 40 MG VIAL IV SCH (13:00)
[2024-10-21 14:56] LABS: allen test SATISFACTORY; mode NASAL CANNULA; o2 36 %; puncture site RADIAL RIGHT
[2024-10-22] VITALS (7 sets, daily range): BP systolic 96–180; BP diastolic 55–100; O2SAT 98–100
[2024-10-22 07:17] LABS: BASO % 0.2 % (0.1-1.2); LYMPH # 0.35 (1.18-3.74); LYMPH % 2.3 % (19.3-53.1); MEAN CORPUSCULAR HEMOGLOBIN 30.7 pg (25.6-32.2); MONO % 5.3 % (4.7-12.5); NEUT # 12.99 (1.56-6.13); NEUT % 86.8 % (34.0-71.1); RED CELL DISTRIBUTION WIDTH 15.9 % (11.6-14.4)
[2024-10-22 08:02] LABS: ALBUMIN 2.3 gm/dL (3.4-5.0); BILIRUBIN TOTAL 0.51 mg/dL (0.3-1.2); CREATININE SERUM 2.12 mg/dL (0.55-1.02); GFR 22.41; GLOBULINA 2.5 G/DL (2.4-3.5); POTASSIUM 4.01 mEq/L (3.5-5.1); TOTAL PROTEIN 4.8 gm/dL (6.4-8.2)
[2024-10-22 08:17] LABS: HEMATOCRIT 26.5 % (34.1-44.9); HEMOGLOBIN 8.6 g/dL (11.2-15.7); PLATELET COUNT 43 K/uL (163-369)
[2024-10-22 08:40] LABS: CALCIUM 5.8 mg/dL (8.5-10.1)
[2024-10-22] MEDS ORDERED: PANTOPRAZOLE SODIUM 40 MG/VIAL VIAL IV PUSH NR (09:40)
[2024-10-22] MEDS ORDERED: FLUCONAZOLE IN NACL,ISO-OSM 200 MG/100 ML PIGGYBAG IV NR (17:00)
[2024-10-22] MEDS ORDERED: BUMETANIDE 2.5 MG/10 ML VIAL IV SCH (17:00)
[2024-10-22 17:07] LABS: URINE APPEARANCE Cloudy; URINE BILIRRUBIN Negative (NEGATIVE); URINE BLOOD Moderate; URINE COLOR Yellow; URINE KETONE Trace (NEGATIVE); URINE LEUKOCYTE Small; URINE NITRATE Negative; URINE UROBILINOGEN 0.2 E.U./dl
[2024-10-22 17:08] LABS: URINE BACTERIA 313.3 uL (0.0-1933); URINE CAST 2.06 uL (0.0-1.40); URINE EPITHELIAL CELLS 9.1 uL (0.0-38.8); URINE WBC 284.8 uL (0.0-23.2)
[2024-10-22 17:31] LABS: INR 1.24; PARTIAL THROMBOPLASTIN TIME 25.5 SECONDS (22.0-34.0); PROTHROMBIN TIME 13.3 SECONDS (9.0-11.5)
[2024-10-22 17:57] LABS: MANUAL PLATELET COUNT 40
[2024-10-22 18:11] LABS: URINE GLUCOSE >=1000 MG/DL (NEGATIVE); URINE PROTEIN 100 (NEGATIVE); URINE YEAST MANY /hpf
[2024-10-22] MEDS ORDERED: METHYLPREDNISOLONE SOD SUCC 40 MG VIAL IV SCH (21:00)
[2024-10-22] MEDS ORDERED: ACETAMINOPHEN 325 MG TABLET PO PRN (22:45)
[2024-10-23] VITALS (9 sets, daily range): BP systolic 146–186; BP diastolic 66–80; O2SAT 96–100
[2024-10-23] MEDS ORDERED: hydrALAZINE HCL 20 MG VIAL IV SCH (02:31)
[2024-10-23] MEDS ORDERED: INSULIN NPH HUM/REG INSULIN HM 1,000 UNIT/10 ML UNITS SUBCUTANEO SCH ×2 (08:00→17:00)
[2024-10-23 09:27] LABS: BASO % 0.2 % (0.1-1.2); HEMATOCRIT 27.4 % (34.1-44.9); LYMPH # 0.29 (1.18-3.74); LYMPH % 1.7 % (19.3-53.1); MEAN CORPUSCULAR HEMOGLOBIN 30.7 pg (25.6-32.2); MONO # 0.72 (0.24-0.82); MONO % 4.1 % (4.7-12.5); NEUT # 16.11 (1.56-6.13); NEUT % 92.1 % (34.0-71.1); RED CELL DISTRIBUTION WIDTH 16.1 % (11.6-14.4)
[2024-10-23 09:39] LABS: HEMOGLOBIN 8.9 g/dL (11.2-15.7); PLATELET COUNT 33 K/uL (163-369)
[2024-10-23] MEDS ORDERED: FLUCONAZOLE IN NACL,ISO-OSM 50 ML IV SCH (12:00)
[2024-10-23 12:56] LABS: ALBUMIN 2.3 gm/dL (3.4-5.0); BILIRUBIN TOTAL 0.49 mg/dL (0.3-1.2); CREATININE SERUM 2.29 mg/dL (0.55-1.02); GFR 20.5; GLOBULINA 2.6 G/DL (2.4-3.5); PHOSPHOROUS 3.5 mg/dL (2.5-4.9); POTASSIUM 3.84 mEq/L (3.5-5.1); TOTAL PROTEIN 4.9 gm/dL (6.4-8.2)
[2024-10-23 13:12] LABS: CALCIUM 5.9 mg/dL (8.5-10.1)
[2024-10-23] MEDS ORDERED: MAGNESIUM SULFATE IN WATER 4 GM/100 ML PIGGYBACK IV NR (14:00)
[2024-10-23] MEDS ORDERED: FLUCONAZOLE IN NACL,ISO-OSM 2 MG/ML ML IV SCH (17:00)
[2024-10-24] VITALS (9 sets, daily range): BP systolic 144–154; BP diastolic 64–72; O2SAT 97–100
[2024-10-24 09:29] LABS: BASO % 0.1 % (0.1-1.2); LYMPH # 0.43 (1.18-3.74); LYMPH % 2.5 % (19.3-53.1); MEAN CORPUSCULAR HEMOGLOBIN 31.3 pg (25.6-32.2); MONO # 0.77 (0.24-0.82); MONO % 4.4 % (4.7-12.5); NEUT # 15.76 (1.56-6.13); NEUT % 90.5 % (34.0-71.1); RED BLOOD COUNT 2.75 M/uL (3.93-5.22); RED CELL DISTRIBUTION WIDTH 16.4 % (11.6-14.4)
[2024-10-24 09:37] LABS: HEMATOCRIT 26.4 % (34.1-44.9); HEMOGLOBIN 8.6 g/dL (11.2-15.7); PLATELET COUNT 31 K/uL (163-369)
[2024-10-24 12:13] LABS: ALBUMIN 2.3 gm/dL (3.4-5.0); BILIRUBIN TOTAL 0.39 mg/dL (0.3-1.2); CREATININE SERUM 2.49 mg/dL (0.55-1.02); GFR 18.62; GLOBULINA 2.3 G/DL (2.4-3.5); MAGNESIUM 1.5 mg/dL (1.8-2.4); PHOSPHOROUS 3.6 mg/dL (2.5-4.9); POTASSIUM 3.51 mEq/L (3.5-5.1); TOTAL PROTEIN 4.6 gm/dL (6.4-8.2)
[2024-10-24 12:36] LABS: CALCIUM 6.2 mg/dL (8.5-10.1)
[2024-10-24] MEDS ORDERED: INSULIN NPH HUM/REG INSULIN HM 1,000 UNIT/10 ML UNITS SUBCUTANEO SCH (17:00)
[2024-10-24] MEDS ORDERED: METHYLPREDNISOLONE SOD SUCC 40 MG VIAL IV SCH (21:00)
[2024-10-25] VITALS (9 sets, daily range): BP systolic 130–142; BP diastolic 54–65; O2SAT 90–100
[2024-10-25] MEDS ORDERED: LEVALBUTEROL HCL 1.25 MG/3 ML SOLUTION IH SCH
[2024-10-25] MEDS ORDERED: IPRATROPIUM BROMIDE 0.5 MG/2.5 ML AMPUL.NEB IH SCH
[2024-10-25] MEDS ORDERED: NYSTATIN 30 GM,ZINC OXIDE 30 GM,SILVER SULFADIAZINE 50 GM TOP SCH (01:00)
[2024-10-25] MEDS ORDERED: INSULIN NPH HUM/REG INSULIN HM 1,000 UNIT/10 ML UNITS SUBCUTANEO SCH (08:00)
[2024-10-25 16:28] LABS: BASO % 0.2 % (0.1-1.2); EOS # 0.02 (0.04-0.54); EOS % 0.1 % (0.7-7.0); LYMPH # 0.32 (1.18-3.74); LYMPH % 1.4 % (19.3-53.1); MEAN CORPUSCULAR HEMOGLOBIN 31.3 pg (25.6-32.2); MONO # 1.63 (0.24-0.82); MONO % 7.3 % (4.7-12.5); NEUT % 87.9 % (34.0-71.1); RED BLOOD COUNT 2.84 M/uL (3.93-5.22); RED CELL DISTRIBUTION WIDTH 16.5 % (11.6-14.4)
[2024-10-25 16:52] LABS: ALBUMIN 2.2 gm/dL (3.4-5.0); BILIRUBIN TOTAL 0.36 mg/dL (0.3-1.2); CALCIUM 6.6 mg/dL (8.5-10.1); CREATININE SERUM 2.65 mg/dL (0.55-1.02); GFR 17.32; GLOBULINA 2.6 G/DL (2.4-3.5); PHOSPHOROUS 3.9 mg/dL (2.5-4.9); PLATELET COUNT 41 K/uL (163-369); POTASSIUM 3.51 mEq/L (3.5-5.1); TOTAL PROTEIN 4.8 gm/dL (6.4-8.2)
[2024-10-25 17:11] LABS: HEMOGLOBIN 8.9 g/dL (11.2-15.7)
[2024-10-25 17:24] LABS: MAGNESIUM 1.3 mg/dL (1.8-2.4)
[2024-10-26] VITALS (8 sets, daily range): BP systolic 126–156; BP diastolic 46–79; O2SAT 95–100
[2024-10-26 06:31] LABS: BASO % 0.2 % (0.1-1.2); LYMPH # 0.36 (1.18-3.74); LYMPH % 1.8 % (19.3-53.1); MEAN CORPUSCULAR HEMOGLOBIN 31.1 pg (25.6-32.2); MONO # 1.29 (0.24-0.82); MONO % 6.6 % (4.7-12.5); NEUT # 17.35 (1.56-6.13); NEUT % 88.8 % (34.0-71.1); RED BLOOD COUNT 2.73 M/uL (3.93-5.22); RED CELL DISTRIBUTION WIDTH 16.4 % (11.6-14.4)
[2024-10-26 06:46] LABS: HEMATOCRIT 26.1 % (34.1-44.9)
[2024-10-26 06:47] LABS: HEMOGLOBIN 8.5 g/dL (11.2-15.7); PLATELET COUNT 25 K/uL (163-369)
[2024-10-26 07:20] LABS: CALCIUM 6.6 mg/dL (8.5-10.1); CREATININE SERUM 2.62 mg/dL (0.55-1.02); GFR 17.55; POTASSIUM 3.56 mEq/L (3.5-5.1)
[2024-10-26] MEDS ORDERED: MEROPENEM 500 MG/VIAL VIAL IV SCH (21:00)
[2024-10-27] VITALS (9 sets, daily range): BP systolic 132–143; BP diastolic 60–75; O2SAT 90–100
[2024-10-27] MEDS ORDERED: DIATRIZOATE MEGLUMINE, SODIUM 30 ML BOTTLE PO NR (06:00)
[2024-10-27] MEDS ORDERED: INSULIN NPH HUM/REG INSULIN HM 1,000 UNIT/10 ML UNITS SUBCUTANEO SCH ×2 (08:00→17:00)
[2024-10-27] MEDS ORDERED: FUROsemide 40 MG/4 ML VIAL IV SCH (09:00)
[2024-10-27] MEDS ORDERED: SPIRONOLACTONE 50 MG TABLET PO SCH (09:00)
[2024-10-27] MEDS ORDERED: SPIRONOLACTONE 25 MG TABLET PO SCH (09:00)
[2024-10-27 16:29] LABS: URINE APPEARANCE Turbid; URINE BILIRRUBIN Negative (NEGATIVE); URINE BLOOD Large; URINE COLOR Yellow; URINE KETONE Negative (NEGATIVE); URINE LEUKOCYTE Large; URINE NITRATE Negative; URINE PROTEIN 30 (NEGATIVE)
[2024-10-27 16:32] LABS: URINE CAST 2.35 uL (0.0-1.40); URINE RBC 457.8 uL (0.0-20.8); URINE WBC 179.3 uL (0.0-23.2)
[2024-10-27 16:41] LABS: TYPE CELLS SQUAMOUS; URINE BACTERIA > 9821.5 uL (0.0-1933); URINE GLUCOSE 100 MG/DL (NEGATIVE)
[2024-10-27 18:04] LABS: BASO % 0.1 % (0.1-1.2); LYMPH # 0.53 (1.18-3.74); LYMPH % 2.6 % (19.3-53.1); MEAN CORPUSCULAR HEMOGLOBIN 31.2 pg (25.6-32.2); MONO % 7.9 % (4.7-12.5); NEUT % 85.4 % (34.0-71.1); RED CELL DISTRIBUTION WIDTH 16.4 % (11.6-14.4)
[2024-10-27 18:16] LABS: HEMATOCRIT 24.7 % (34.1-44.9); HEMOGLOBIN 8.1 g/dL (11.2-15.7); PLATELET COUNT 51 K/uL (163-369)
[2024-10-27 18:31] LABS: ALBUMIN 2.1 gm/dL (3.4-5.0); BILIRUBIN TOTAL 0.35 mg/dL (0.3-1.2); CALCIUM 6.7 mg/dL (8.5-10.1); CREATININE SERUM 2.5 mg/dL (0.55-1.02); GFR 18.53; GLOBULINA 2.8 G/DL (2.4-3.5); PHOSPHOROUS 3.6 mg/dL (2.5-4.9); POTASSIUM 4.23 mEq/L (3.5-5.1); TOTAL PROTEIN 4.9 gm/dL (6.4-8.2)
[2024-10-27 18:41] LABS: C-REACTIVE PROTEIN 8.13 MG/DL (0.00-0.29)
[2024-10-27 18:42] LABS: MAGNESIUM 1.1 mg/dL (1.8-2.4)
[2024-10-27] MEDS ORDERED: MAGNESIUM SULFATE IN WATER 50 ML IV ONE (18:45)
[2024-10-28] VITALS (9 sets, daily range): BP systolic 91–143; BP diastolic 41–75; O2SAT 93–100
[2024-10-28] MEDS ORDERED: IPRATROPIUM BROMIDE 0.5 MG/2.5 ML AMPUL.NEB IH SCH (17:00)
[2024-10-28] MEDS ORDERED: LEVALBUTEROL HCL 1.25 MG/3 ML SOLUTION IH SCH (17:00)
[2024-10-29] VITALS (9 sets, daily range): BP systolic 141–150; BP diastolic 66–82; O2SAT 95–98
[2024-10-29 06:26] LABS: BASO % 0.1 % (0.1-1.2); EOS # 0.02 (0.04-0.54); EOS % 0.1 % (0.7-7.0); LYMPH # 1.13 (1.18-3.74); LYMPH % 7.8 % (19.3-53.1); MEAN CORPUSCULAR HEMOGLOBIN 31.4 pg (25.6-32.2); MONO # 0.92 (0.24-0.82); MONO % 6.4 % (4.7-12.5); NEUT # 12.03 (1.56-6.13); NEUT % 83.7 % (34.0-71.1); RED BLOOD COUNT 2.58 M/uL (3.93-5.22); RED CELL DISTRIBUTION WIDTH 16.3 % (11.6-14.4)
[2024-10-29 06:36] LABS: HEMATOCRIT 25.1 % (34.1-44.9); HEMOGLOBIN 8.1 g/dL (11.2-15.7); PLATELET COUNT 36 K/uL (163-369)
[2024-10-29 07:19] LABS: BILIRUBIN TOTAL 0.35 mg/dL (0.3-1.2); BILIRUBIN,CONJUGATED 0.14 mg/dL (0.0-0.2); BILIRUBIN,UNCONJUGATED 0.21 mg/dL (0.0-0.6); CALCIUM 7.1 mg/dL (8.5-10.1); CREATININE SERUM 2.31 mg/dL (0.55-1.02); GFR 20.3; PHOSPHOROUS 3.2 mg/dL (2.5-4.9); POTASSIUM 4.07 mEq/L (3.5-5.1); TOTAL PROTEIN 4.7 gm/dL (6.4-8.2)
[2024-10-29 07:44] LABS: MAGNESIUM 1.3 mg/dL (1.8-2.4)
[2024-10-29] MEDS ORDERED: METHYLPREDNISOLONE SOD SUCC 40 MG VIAL IV SCH (09:00)
[2024-10-29] MEDS ORDERED: MAGNESIUM SULFATE IN WATER 4 GM/100 ML PIGGYBACK IV NR (09:00)
[2024-10-29] MEDS ORDERED: hydrALAZINE HCL 10 MG TABLET PO SCH (17:00)
[2024-10-29 18:58] LABS: URINE APPEARANCE Clear; URINE BILIRRUBIN Negative (NEGATIVE); URINE BLOOD Trace; URINE COLOR Yellow; URINE KETONE Negative (NEGATIVE); URINE LEUKOCYTE Trace; URINE NITRATE Negative; URINE PROTEIN 30 (NEGATIVE); URINE UROBILINOGEN 0.2 E.U./dl
[2024-10-29 19:02] LABS: URINE BACTERIA 1019.5 uL (0.0-1933); URINE EPITHELIAL CELLS 8.7 uL (0.0-38.8); URINE RBC 7.6 uL (0.0-20.8); URINE WBC 25.8 uL (0.0-23.2)
[2024-10-29 19:21] LABS: URINE CAST 0.29 uL (0.0-1.40); URINE GLUCOSE 100 MG/DL (NEGATIVE); URINE YEAST MANY /hpf
[2024-10-30 00:16] VITALS: O2SAT 97
[2024-10-30 00:44] VITALS: BP 153/71; O2SAT 99
[2024-10-30 07:08] LABS: hav igm Negative (Negative); hcv Non Reactive (Non Reactive); hep b c Negative (Negative); hep b s ag Negative (Negative)
[2024-10-30 08:39] VITALS: BP 160/70; O2SAT 96
[2024-10-30] MEDS ORDERED: EPOETIN ALFA-EPBX 10,000 UNIT/ML VIAL (Retacrit) SUBCUTANEO SCH (09:00)
[2024-10-30] MEDS ORDERED: FUROsemide 40 MG TABLET PO SCH (09:00)
[2024-10-30 09:12] LABS: ALPHA FETO PROTEIN 3.3 ng/mL (0.0-9.2)
[2024-10-30 13:08] LABS: CERULOPLASMIN 16.6 mg/dL (19.0-39.0)
[2024-10-30 17:34] VITALS: BP 162/60
[2024-10-30 20:33] LABS: GLU PERITONEAL FLUID 279 mg/dl; LDH PERITONEAL FLUID 75 U/L; TP PERITONEAL FLUID 0.6 g/dl; TRIG PERITONEAL FLUID 174 mg/dl
[2024-10-30 20:59] LABS: CHOL PERITONEAL FLUID < 50 mg/dl
[2024-10-31] VITALS (7 sets, daily range): BP systolic 149–180; BP diastolic 67–76; O2SAT 93–100
[2024-10-31] MEDS ORDERED: LACTOBACILLUS ACIDOPHILUS 1 CAP CAP PO SCH (17:00)
[2024-10-31] MEDS ORDERED: FLUCONAZOLE IN NACL,ISO-OSM 2 MG/ML ML IV SCH (17:00)
[2024-11-01 00:48] VITALS: O2SAT 100
[2024-11-01 01:41] VITALS: BP 130/54; O2SAT 97
[2024-11-01 05:31] VITALS: O2SAT 99
[2024-11-01] MEDS ORDERED: METHYLPREDNISOLONE SOD SUCC 40 MG VIAL IV SCH (09:00)
[2024-11-01 09:08] VITALS: O2SAT 100
[2024-11-01 09:15] VITALS: BP 179/69; O2SAT 100
[2024-11-01 12:24] VITALS: O2SAT 100
[2024-11-01] MEDS ORDERED: GENTAMICIN SULFATE 40 MG/ML VIAL IV NR (13:45)
[2024-11-01 18:31] LABS: ALBUMIN 1.6 gm/dL (3.4-5.0); BILIRUBIN TOTAL 0.33 mg/dL (0.3-1.2); CREATININE SERUM 1.74 mg/dL (0.55-1.02); GFR 28.15; GLOBULINA 2.3 G/DL (2.4-3.5); POTASSIUM 4.11 mEq/L (3.5-5.1); TOTAL PROTEIN 3.9 gm/dL (6.4-8.2)
[2024-11-01 18:48] LABS: CALCIUM 6.5 mg/dL (8.5-10.1)
[2024-11-02 01:11] LABS: alpha I 126 mg/dL (101-187)
[2024-11-02 13:08] LABS: ANTI MITOCHONDRIAL ANTIBODIES < 20.0 Units (0.0-20.0); SMOOTH MUSCLE ANTIBODY 3 Units (0-19)
== END 2024-11-01 18:50 | disposition home or self-care (01) | DRG 177 ==
LOC: ER 21:33 → MEDJ 10-10 13:37 → ICU-2 10-10 13:37 → MEDJ 10-10 18:00
PROVIDERS: Emergency Medicine; General Practice; Internal Medicine; Internal Medicine Geriatric Medicine; Internal Medicine Hematology & Oncology; Internal Medicine Infectious Disease; Radiology Vascular & Interventional Radiology; ADMIT Internal Medicine; ATTEND Internal Medicine
PROC: 8E0ZXY6 Isolation (ICD-10-PCS; principal; 2024-10-10)
PROC: BW24ZZZ Computerized Tomography (CT Scan) of Chest and Abdomen (ICD-10-PCS; 2024-10-10)
PROC: 4A12X4Z Monitoring of Cardiac Electrical Activity, External Approach (ICD-10-PCS; 2024-10-10)
PROC: 30233N1 Transfusion of Nonautologous Red Blood Cells into Peripheral Vein, Percutaneous Approach (ICD-10-PCS; 2024-10-10)
PROC: B54DZZZ Ultrasonography of Bilateral Lower Extremity Veins (ICD-10-PCS; 2024-10-11)
PROC: BW28ZZZ Computerized Tomography (CT Scan) of Head (ICD-10-PCS; 2024-10-22)
PROC: B24BZZZ Ultrasonography of Heart with Aorta (ICD-10-PCS; 2024-10-22)
PROC: BW40ZZZ Ultrasonography of Abdomen (ICD-10-PCS; 2024-10-25)
PROC: B54PZZZ Ultrasonography of Bilateral Upper Extremity Veins (ICD-10-PCS; 2024-10-25)
PROC: BW21ZZZ Computerized Tomography (CT Scan) of Abdomen and Pelvis (ICD-10-PCS; 2024-10-27)
PROC: BW24ZZZ Computerized Tomography (CT Scan) of Chest and Abdomen (ICD-10-PCS; 2024-10-27)
PROC: 30233R1 Transfusion of Nonautologous Platelets into Peripheral Vein, Percutaneous Approach (ICD-10-PCS; 2024-10-27)
PROC: 0W9G3ZZ Drainage of Peritoneal Cavity, Percutaneous Approach (ICD-10-PCS; 2024-10-30)
PROC: 02HV33Z Insertion of Infusion Device into Superior Vena Cava, Percutaneous Approach (ICD-10-PCS; 2024-11-01)
DX: U07.1 COVID-19 (principal); J12.82 Pneumonia due to coronavirus disease 2019; I82.432 Acute embolism and thrombosis of left popliteal vein; N17.9 Acute kidney failure, unspecified; N18.4 Chronic kidney disease, stage 4 (severe); N39.0 Urinary tract infection, site not specified; E27.3 Drug-induced adrenocortical insufficiency; E87.0 Hyperosmolality and hypernatremia; R78.81 Bacteremia; I12.9 Hypertensive chronic kidney disease with stage 1 through stage 4 chronic kidney disease, or unspecified chronic kidney disease; J84.10 Pulmonary fibrosis, unspecified; E11.22 Type 2 diabetes mellitus with diabetic chronic kidney disease; Z79.4 Long term (current) use of insulin; D63.1 Anemia in chronic kidney disease; D69.6 Thrombocytopenia, unspecified; J44.9 Chronic obstructive pulmonary disease, unspecified; E03.9 Hypothyroidism, unspecified; I25.10 Atherosclerotic heart disease of native coronary artery without angina pectoris; E11.65 Type 2 diabetes mellitus with hyperglycemia; B96.1 Klebsiella pneumoniae [K. pneumoniae] as the cause of diseases classified elsewhere; B96.89 Other specified bacterial agents as the cause of diseases classified elsewhere; T38.0X5A Adverse effect of glucocorticoids and synthetic analogues, initial encounter; K74.69 Other cirrhosis of liver